=== PATIENT | female | born 1985 | race Caucasian/White ===

== ENCOUNTER 2017-02-10 17:01 | Emergency (ER) | payer BC ==
[2017-02-10] MEDS ORDERED: Sodium Chloride 0.9% 10 ML Syringe FLUSH PRN (17:13)
[2017-02-10] MEDS ORDERED: Sodium Chloride 0.9% 2.5 ML Syringe FLUSH PRN (17:13)
--- NOTE | 2017-02-10 17:16 | EDM.PDOC ---
ED HPI GENERAL MEDICAL PROBLEM - General Chief Complaint: Chest Pain Stated Complaint: PT HAS CHEST PAINS Time Seen by Provider: 02/10/17 17:11 - History of Present Illness INITIAL COMMENTS - FREE TEXT/NARRATIVE: HISTORY AND PHYSICAL: History of present illness: The patient is a 31-year-old female with a history of anxiety who follows with Dr. Call in her family practice clinic and has a history of a LAP-BAND and a C- section who presents with complaints of midsternal chest pain pressure that started about 10 minutes ago. She states it was a normal day today with no systemic complaints such as fever chills cough runny nose vomiting or diarrhea and has been eating normally. She said that she gradually felt the discomfort which is at the lower part of her sternum it does not radiate. She has had this in the past but never to this intensity. She stated that when it started it was a 3/10 and did not radiate. It was not associated with diaphoresis nausea or shortness of breath. The patient has a significant history of chronic alcohol use and injury HEENT the last 6 months but stopped approximately 10 days ago. She has had no tremors or withdrawal symptoms and is working with a counselor regarding this process. The patient denies any stomach pain per se and has no history of food intolerance. The patient currently states her pain is a 3.5/10 and she did not take any medications prior to coming here. The patient has her alcohol history but does not smoke or do drugs she does not know her cholesterol lipid panel and she has no significant family history. Patient also denies any leg pain or swelling and no recent long trips or sedentary behavior. She also denies any trauma Review of systems: As per history of present illness and below otherwise all systems reviewed and negative. Past medical history: As per history of present illness and as reviewed below otherwise noncontributory. Surgical history: As per history of present illness and as reviewed below otherwise noncontributory. Social history: No reported history of drug or alcohol abuse. Family history: As per history of present illness and as reviewed below otherwise noncontributory. Physical exam: General: Well-developed overweight female who is nontoxic and speaking clearly and easily. Her vital signs by me. HEENT: Atraumatic, normocephalic, pupils reactive, negative for conjunctival pallor or scleral icterus, mucous membranes moist, throat clear, neck supple, nontender, trachea midline. Lungs: Clear to auscultation, breath sounds equal bilaterally, chest with some reproducible tenderness at the lower sternal area without crepitus or defects Heart: S1S2, regular, negative for clicks, rubs, or JVD. Abdomen: Soft, nondistended, nontender. Negative for masses or hepatosplenomegaly. Negative for costovertebral tenderness. Pelvis: Stable nontender. Genitourinary: Deferred. Rectal: Deferred. Extremities: Atraumatic, negative for cords or calf pain. Neurovascular unremarkable. No pedal edema or leg asymmetry Neuro: Awake, alert, oriented. Cranial nerves II through XII unremarkable. Cerebellum unremarkable. Motor and sensory unremarkable throughout. Exam nonfocal. The patient exhibits no tremulousness Diagnostics: EKG chest x-ray CBC CMP amylase lipase d-dimer troponin Therapeutics: IV O2 monitor aspirin nitroglycerin 1750: When the nurse went in to give her the sublingual nitroglycerin patient states the pain is gone. We will continue with the aspirin and reevaluate. I discussed with the patient and significant other at bedside all testing results and recommendation for observation admission. It is unclear if this is truly cardiac or reproducible chest pain or GI related. Patient is aware of the risk benefits and states that she would prefer to go home and pursue outpatient workup with Dr. Call in the clinic. She is aware of my concerns and accepts those and is awake alert and oriented and states she will return for any problems. She prefer to go home and not be admitted. Impression: Atypical chest pain etiology unclear stable Definitive disposition and diagnosis as appropriate pending reevaluation and review of above. Chest Pain Score (Numeric/FACES): 3 - Related Data Allergies Allergy/AdvReac Type Severity Reaction Status Date / Time Penicillins Allergy Rash Verified 02/10/17 17:13 Home Meds: Home Meds Citalopram [Celexa] 20 mg PO DAILY 02/10/17 [History] ED ROS GENERAL - Review of Systems Review Of Systems: ROS reveals no pertinent complaints other than HPI. ED EXAM, GENERAL - Physical Exam Exam: See Below (See dictation) Course - Vital Signs Last Recorded V/S: Last Vital Signs Temp 37.1 C 02/10/17 17:13 Pulse 72 02/10/17 18:28 Resp 16 02/10/17 18:28 BP 115/69 02/10/17 18:36 Pulse Ox 98 02/10/17 18:28 - Orders/Labs/Meds Orders: Active Orders 24 hr Category Date Time Status Cardiac Monitoring [RC] . DIRECTED Care 02/10/17 17:12 Active EKG Documentation Completion [RC] STAT Care 02/10/17 17:12 Active Oxygen Therapy, ED [RC] ASDIRECTED Care 02/10/17 17:12 Active Pulse Oximetry [RC] ASDIRECTED Care 02/10/17 17:12 Active Chest 1V Frontal [CR] Stat Exams 02/10/17 17:12 Taken Sodium Chloride 0.9% [Saline Flush] Med 02/10/17 17:13 Active 10 ml FLUSH ASDIRECTED PRN Sodium Chloride 0.9% [Saline Flush] Med 02/10/17 17:13 Active 2.5 ml FLUSH ASDIRECTED PRN Saline Lock Insert [OM.PC] Stat Oth 02/10/17 17:12 Ordered Medication Orders Sodium Chloride (Saline Flush) 10 ml FLUSH ASDIRECTED PRN PRN Reason: Keep Vein Open Sodium Chloride (Saline Flush) 2.5 ml FLUSH ASDIRECTED PRN PRN Reason: Keep Vein Open Labs: Laboratory Tests 02/10/17 02/10/17 02/10/17 Range/Units 17:33 17:33 17:33 WBC 11.08 H (4.0-11.0) K/uL RBC 4.60 (4.30-5.90) M/uL Hgb 12.9 (12.0-16.0) g/dL Hct 40.6 (36.0-46.0) % MCV 88.3 (80.0-98.0) fL MCH 28.0 (27.0-32.0) pg MCHC 31.8 (31.0-37.0) g/dL RDW Std Deviation 42.7 (28.0-62.0) fl RDW Coeff of Jin 13 (11.0-15.0) % Plt Count 260 (150-400) K/uL MPV 10.50 (7.40-12.00) fL Neut % (Auto) 70.5 (48.0-80.0) % Lymph % (Auto) 23.1 (16.0-40.0) % Obion % (Auto) 4.7 (0.0-15.0) % Eos % (Auto) 1.2 (0.0-7.0) % Baso % (Auto) 0.5 (0.0-1.5) % Neut # (Auto) 7.8 H (1.4-5.7) K/uL Lymph # (Auto) 2.6 H (0.6-2.4) K/uL Obion # (Auto) 0.5 (0.0-0.8) K/uL Eos # (Auto) 0.1 (0.0-0.7) K/uL Baso # (Auto) 0.1 (0.0-0.1) K/uL Nucleated RBC % 0.0 /100WBC Nucleated RBCs # 0 K/uL D-Dimer, Quantitative 0.22 (0.0-0.52) mg/LFEU Sodium 137 (136-146) mmol/L Potassium 3.8 (3.5-5.1) mmol/L Chloride 104 (98-110) mmol/L Carbon Dioxide 23 (21-31) mmol/L BUN 10 (6.0-23.0) mg/dL Creatinine 0.8 (0.6-1.5) mg/dL Est Cr Clr Drug Dosing TNP Estimated GFR (MDRD) > 60.0 ml/min Glucose 102 (60-110) mg/dL Calcium 9.1 (8.8-10.8) mg/dL Total Bilirubin 0.3 (0.1-1.5) mg/dL AST 17 (5-40) IU/L ALT 12 (8-54) IU/L Alkaline Phosphatase 71 (40-150) Troponin I (0.0-0.29) NG/ML Total Protein 7.6 (6.0-8.0) g/dL Albumin 4.2 (3.5-5.0) g/dL Globulin 3.4 (2.0-3.5) g/dL Albumin/Globulin Ratio 1.2 L (1.3-2.8) Amylase 44 (10-90) U/L Lipase 31 (7-80) U/L 02/10/17 Range/Units 17:33 WBC (4.0-11.0) K/uL RBC (4.30-5.90) M/uL Hgb (12.0-16.0) g/dL Hct (36.0-46.0) % MCV (80.0-98.0) fL MCH (27.0-32.0) pg MCHC (31.0-37.0) g/dL RDW Std Deviation (28.0-62.0) fl RDW Coeff of Jin (11.0-15.0) % Plt Count (150-400) K/uL MPV (7.40-12.00) fL Neut % (Auto) (48.0-80.0) % Lymph % (Auto) (16.0-40.0) % Obion % (Auto) (0.0-15.0) % Eos % (Auto) (0.0-7.0) % Baso % (Auto) (0.0-1.5) % Neut # (Auto) (1.4-5.7) K/uL Lymph # (Auto) (0.6-2.4) K/uL Obion # (Auto) (0.0-0.8) K/uL Eos # (Auto) (0.0-0.7) K/uL Baso # (Auto) (0.0-0.1) K/uL Nucleated RBC % /100WBC Nucleated RBCs # K/uL D-Dimer, Quantitative (0.0-0.52) mg/LFEU Sodium (136-146) mmol/L Potassium (3.5-5.1) mmol/L Chloride (98-110) mmol/L Carbon Dioxide (21-31) mmol/L BUN (6.0-23.0) mg/dL Creatinine (0.6-1.5) mg/dL Est Cr Clr Drug Dosing Estimated GFR (MDRD) ml/min Glucose (60-110) mg/dL Calcium (8.8-10.8) mg/dL Total Bilirubin (0.1-1.5) mg/dL AST (5-40) IU/L ALT (8-54) IU/L Alkaline Phosphatase (40-150) Troponin I < 0.10 (0.0-0.29) NG/ML Total Protein (6.0-8.0) g/dL Albumin (3.5-5.0) g/dL Globulin (2.0-3.5) g/dL Albumin/Globulin Ratio (1.3-2.8) Amylase (10-90) U/L Lipase (7-80) U/L Meds: Medications Generic Name Dose Route Start Last Admin Trade Name Freq PRN Reason Stop Dose Admin Sodium Chloride 10 ml 02/10/17 17:13 Saline Flush FLUSH ASDIRECTED PRN Keep Vein Open Sodium Chloride 2.5 ml 02/10/17 17:13 Saline Flush FLUSH ASDIRECTED PRN Keep Vein Open Discontinued Medications Generic Name Dose Route Start Last Admin Trade Name Freq PRN Reason Stop Dose Admin Aspirin 324 mg 02/10/17 17:13 02/10/17 17:33 Aspirin PO 02/10/17 17:14 324 mg ONETIME ONE Administration Nitroglycerin 0.4 mg 02/10/17 17:17 02/10/17 18:36 Nitrostat SL 02/10/17 17:18 Not Given ONETIME ONE Departure - Departure Time of Disposition: 18:43 Disposition: Home, Self-Care 01 Condition: good Clinical Impression: Atypical chest pain Forms: ED Department Discharge Additional Instructions: The following information is given to patients seen in the emergency department who are being discharged to home. This information is to outline your options for follow-up care. We provide all patients seen in our emergency department with a follow-up referral. The need for follow-up, as well as the timing and circumstances, are variable depending upon the specifics of your emergency department visit. If you don't have a primary care physician on staff, we will provide you with a referral. We always advise you to contact your personal physician following an emergency department visit to inform them of the circumstance of the visit and for follow-up with them and/or the need for any referrals to a consulting specialist. The emergency department will also refer you to a specialist when appropriate. This referral assures that you have the opportunity for followup care with a specialist. All of these measure are taken in an effort to provide you with optimal care, which includes your followup. Under all circumstances we always encourage you to contact your private physician who remains a resource for coordinating your care. When calling for followup care, please make the office aware that this follow-up is from your recent emergency room visit. If for any reason you are refused follow-up, please contact the [facility] emergency department at and ask to speak to the emergency department charge nurse. ARLETTE [facility] Primary care- Internal Medicine and Family [address] [address] Please take one enteric-coated aspirin 325 mg every day until you're followed up in the clinic. Please call the clinic tomorrow for a appointment in the next one to today's and return to ER as needed as discussed. - My Orders Last 24 Hours: My Active Orders 02/10/17 17:12 Cardiac Monitoring [RC] . DIRECTED EKG Documentation Completion [RC] STAT Oxygen Therapy, ED [RC] ASDIRECTED Pulse Oximetry [RC] ASDIRECTED Chest 1V Frontal [CR] Stat Saline Lock Insert [OM.PC] Stat 02/10/17 17:13 Sodium Chloride 0.9% [Saline Flush] 10 ml FLUSH ASDIRECTED PRN Sodium Chloride 0.9% [Saline Flush] 2.5 ml FLUSH ASDIRECTED PRN - Assessment/Plan Last 24 Hours: My Active Orders 02/10/17 17:12 Cardiac Monitoring [RC] . DIRECTED EKG Documentation Completion [RC] STAT Oxygen Therapy, ED [RC] ASDIRECTED Pulse Oximetry [RC] ASDIRECTED Chest 1V Frontal [CR] Stat Saline Lock Insert [OM.PC] Stat 02/10/17 17:13 Sodium Chloride 0.9% [Saline Flush] 10 ml FLUSH ASDIRECTED PRN Sodium Chloride 0.9% [Saline Flush] 2.5 ml FLUSH ASDIRECTED PRN
[2017-02-10] MEDS: Aspirin 81 MG Tab.Chew PO ONE (17:33)
[2017-02-10 18:11] LABS: CHLORIDE,CL 104 mmol/L (98-110); SODIUM,NA 137 mmol/L (136-146)
[2017-02-10] MEDS: Nitroglycerin 0.4 MG Tab.SL SL ONE (18:36)
--- NOTE | 2017-02-11 13:29 | CR ---
EXAM DATE: 02/10/17 PATIENT'S AGE: 31 Patient: MARCELINO WYMAN Facility: [place], [place] Site . Site : 1985 Study: XRay Chest [id number]/[id number] 5:40:27 PM Ordering Physician: Doctor Nguyen Final Report: Indication: Chest pain Technique: Chest 1 view. Comparison: None Findings: Cardiovascular and mediastinum: Heart size and vasculature are normal in caliber and appearance. Mediastinum is within normal limits. Lungs and pleural space: Lungs are clear. No sign of infiltrate or mass. No sign of pleural effusion. No pneumothorax. Bones and soft tissues: No significant findings. Impression: No sign of acute disease. Dictated by Kellen Esteves MD @ Feb 10 2017 6:02PM (Electronic Signature) Report Signed by Proxy and Original Signed Document filed in the Medical Record. CHELSEA
== END 2017-02-10 19:03 | disposition home or self-care (01) ==
LOC: MW.ED 17:01
DX: R07.89 Other chest pain (principal); Z88.0 Allergy status to penicillin; Z79.899 Other long term (current) drug therapy; Z98.890 Other specified postprocedural states
CPT/HCPCS: 36415; 71010; 80053; 82150; 83690; 84484; 85025; 85379; 93005; 99285; A9270; 99284

== ENCOUNTER 2019-09-25 02:54 | Observation (INO) | payer BC ==
[2019-09-25] MEDS ORDERED: Sodium Chloride 0.9% 2.5 ML Syringe FLUSH PRN ×2 (02:57→06:19)
[2019-09-25] MEDS ORDERED: Sodium Chloride 0.9% 10 ML Syringe FLUSH PRN ×2 (02:57→06:19)
[2019-09-25] MEDS ORDERED: Ondansetron 4 MG/2 ML SDV IVPUSH ONE (03:17)
[2019-09-25] MEDS ORDERED: LORazepam 2 MG/ML SDV IVPUSH ONE (03:17)
[2019-09-25] MEDS ORDERED: Sodium Chloride 0.9% 1,000 ML IV ONE (03:17)
[2019-09-25] MEDS ORDERED: Pantoprazole 40 MG Vial IVPUSH ONE (03:17)
--- NOTE | 2019-09-25 03:24 | EDM.PDOC ---
ED HPI GENERAL MEDICAL PROBLEM - General Chief Complaint: Chest Pain Stated Complaint: CHEST PAIN Time Seen by Provider: 09/25/19 02:55 - History of Present Illness INITIAL COMMENTS - FREE TEXT/NARRATIVE: HISTORY AND PHYSICAL: History of present illness: The patient is a 34-year-old female with a history of anxiety gastric sleeve procedure as well as a history of chronic episodic alcohol use for which she just started naltrexone yesterday for the first dose and presents with complaints of midsternal chest pain pressure with some burning that started about 10 PM, 5 hours ago. The patient says that over the last 3-4 days she has increased her volume of alcohol consumption and although she drinks on a daily basis over the last 3-4 days it has been higher in volume and has accelerated significantly. The patient said that she had the prescription for the naltrexone in the past but did not start until yesterday. She saw her provider in the clinic of Dr. Call one month ago to have her liver function test checked so that she could start this medication and try to help treat herself. The patient denies any vomiting or diarrhea and has not had black or bloody stools but says she does have nausea. She says that the only time she will vomit is when she drinks too much alcohol and due to the limited capacity after her gastric sleeve she gets bloated. She has not had any shortness of breath or upper respiratory symptoms no fevers or chills and she describes the discomfort as midsternal nonradiating and it is a pressure burning like sensation. She says that she feels very shaky and very anxious and is concerned that she is going into withdrawal. She said the only reason why she came here this evening is because she is supposed to leave this morning on a business trip for several days and she was very scared to go on this trip and be in a hotel room by herself and she thinks she is going to go through alcohol withdrawal. She has not had any recent trauma and has no urinary complaints. She says that she does feel very anxious and shaky but has no generalized weakness or focal weakness. She currently in the ED has no complaints of any pain other than the chest discomfort and she did not take any medications at home for that. The patient was seen here by me approximately 2 years ago for atypical chest pain and similar complaints of location and character of the pain and had negative workup and says that she did not get any further testing as an outpatient such as a stress test or upper endoscopy. The patient denies any drug use and does not smoke cigarettes. The patient is currently not an any oral contraception and gets her menstrual cycles every month. Patient has no significant family history for cardiac disease It is noted that in the computer in May 2018 she had normal triglycerides and cholesterol levels on blood work done Review of systems: As per history of present illness and below otherwise all systems reviewed and negative. Past medical history: As per history of present illness and as reviewed below otherwise noncontributory. Surgical history: As per history of present illness and as reviewed below otherwise noncontributory. Social history: No reported history of drug or alcohol abuse. Family history: As per history of present illness and as reviewed below otherwise noncontributory. Physical exam: General: Well-developed well-nourished overweight female who is nontoxic and vital signs are noted by me. Throughout the course of my questioning and interview the patient is tearful and expresses remorse about her behaviors and her alcohol use and abuse. HEENT: Atraumatic, normocephalic, pupils reactive, negative for conjunctival pallor or scleral icterus, mucous membranes moist, throat clear, neck supple, nontender, trachea midline. Lungs: Clear to auscultation, breath sounds equal bilaterally, chest nontender. Heart: S1S2, regular, negative for clicks, rubs, or JVD. Abdomen: Soft, nondistended, nontender. Negative for masses or hepatosplenomegaly. Negative for costovertebral tenderness. Pelvis: Stable nontender. Genitourinary: Deferred. Rectal: Deferred. Extremities: Atraumatic, negative for cords or calf pain. Neurovascular unremarkable. No pedal edema or leg asymmetry Neuro: Awake, alert, oriented. Cranial nerves II through XII unremarkable. Cerebellum unremarkable. Motor and sensory unremarkable throughout. Exam nonfocal. The patient has slight tremulousness and intermittent tachycardia on my evaluation. Skin: There is no diaphoresis no overt rashes or lesions and turgor is normal Diagnostics: EKG CBC CMP amylase lipase troponin INR alcohol level UA UCG UDS chest x-ray magnesium level Therapeutics: IV O2 monitor IV fluids Zofran and Protonix, banana bag and Ativan Patient's blood pressure has improved with the last blood pressure I've seen is 152/94 at 3:45 AM and her heart rate is in the 70s to 80s. The patient is no longer as shaky as she was on arrival and says that she no longer has the chest discomfort or the burning sensation and it is significantly improved and barely there. She no longer feels nauseated. I have discussed with her the variety of options that we have for treatment plan and she feels very comfortable with discharge home and she is scared that she will go through a larger episode of withdrawal, which she has had in the past when she has tried to stop drinking. She is aware that we can only observe her here and is up to the discretion of the hospitalist for that and that after that observation she would have to get more definitive care. She is open to inpatient care and would be willing to go to [facility] for an intake evaluation and/or be connected to any other treatment plans that we might be able to suggest an offer. She says the reason why she came into the ED tonight is because she is very concerned about the way she was feeling and the possible progression of her withdrawal symptoms and she has had had bad experiences in the past. I will discuss this case with Dr. Grimes and look for observation admission with the goal of connecting her for the next level of care with her alcohol addiction. Nursing will do a CIWA score 430: Case was discussed with Dr. Grimes who accepts the patient for observation admission and will work with her and advised her on next steps in her care plan. He agrees that the patient does not need to be in ICU or on telemetry at this time. Impression: alcohol withdrawal symptoms, mild Definitive disposition and diagnosis as appropriate pending reevaluation and review of above. chest Pain Score (Numeric/FACES): 4 - Related Data Allergies Allergy/AdvReac Type Severity Reaction Status Date / Time Penicillins Allergy Rash Verified 09/25/19 03:01 Home Meds: Home Meds Naltrexone 50 mg PO DAILY 09/25/19 [History] Past Medical History HEENT History: Reports: Impaired Vision, Other (See Below) Other HEENT History: wears glasses Gastrointestinal History: Reports: None Genitourinary History: Reports: None [employer] History: Reports: Psychiatric History: Reports: Anxiety, Other (See Below) Other Psychiatric History: post depression - Infectious Disease History Infectious Disease History: Reports: Chicken Pox - Past Surgical History HEENT Surgical History: Reports: None GI Surgical History: Reports: Bariatric Procedure Female Surgical History: Reports: Section Social & Family History - Family History Family Medical History: Noncontributory - Tobacco Use Smoking Status *Q: Never Smoker Second Hand Smoke Exposure: No - Caffeine Use Caffeine Use: Reports: Coffee Caffeine Use Comment: 4 drinks daily - Alcohol Use Days Per Week of Alcohol Use: 7 Number of Drinks Per Day: 2 Total Drinks Per Week: 14 - Recreational Drug Use Recreational Drug Use: No ED ROS GENERAL - Review of Systems Review Of Systems: ROS reveals no pertinent complaints other than HPI. ED EXAM, GENERAL - Physical Exam Exam: See Below (See dictation) Course - Vital Signs Last Recorded V/S: Last Vital Signs Temp 36.2 C 09/25/19 02:58 Pulse 89 09/25/19 02:58 Resp 17 09/25/19 02:58 BP 183/101 H 09/25/19 02:58 Pulse Ox 99 09/25/19 02:58 - Orders/Labs/Meds Orders: Active Orders 24 hr Category Date Time Status Patient Status [ADT] Stat ADT 09/25/19 04:33 Ordered Blood Glucose Check, Bedside [RC] ONETIME Care 09/25/19 03:16 Active Cardiac Monitoring [RC] . DIRECTED Care 09/25/19 02:57 Active EKG Documentation Completion [RC] STAT Care 09/25/19 02:57 Active Oxygen Therapy, ED [RC] ASDIRECTED Care 09/25/19 02:57 Active Pulse Oximetry [RC] ASDIRECTED Care 09/25/19 02:57 Active CULTURE URINE [RM] Stat Lab 09/25/19 03:45 Received MVI, Adult with Vitamin K [Infuvite Adult] 10 ml Med 09/25/19 03:25 Active Thiamine [Vitamin B-1] 100 mg Folic Acid 1 mg Sodium Chloride 0.9% [Normal Saline] 1,000 ml IV ONETIME Sodium Chloride 0.9% [Saline Flush] Med 09/25/19 02:57 Active 10 ml FLUSH ASDIRECTED PRN Sodium Chloride 0.9% [Saline Flush] Med 09/25/19 02:57 Active 2.5 ml FLUSH ASDIRECTED PRN Saline Lock Insert [OM.PC] Stat Oth 09/25/19 02:57 Ordered Medication Orders Multivitamins/Minerals 10 ml/Thiamine HCl 100 mg/ Folic Acid 1 mg/ Sodium Chloride 1,011.2 mls @ 150 mls/hr IV ONETIME ONE Stop: 09/25/19 10:09 Last Admin: 09/25/19 04:29 Dose: 150 mls/hr Sodium Chloride (Saline Flush) 10 ml FLUSH ASDIRECTED PRN PRN Reason: Keep Vein Open Sodium Chloride (Saline Flush) 2.5 ml FLUSH ASDIRECTED PRN PRN Reason: Keep Vein Open Labs: Laboratory Tests 09/25/19 09/25/19 09/25/19 Range/Units 03:04 03:04 03:04 WBC 11.48 H (4.0-11.0) K/uL RBC 4.50 (4.30-5.90) M/uL Hgb 12.6 (12.0-16.0) g/dL Hct 39.1 (36.0-46.0) % MCV 86.9 (80.0-98.0) fL MCH 28.0 (27.0-32.0) pg MCHC 32.2 (31.0-37.0) g/dL RDW Std Deviation 44.7 (28.0-62.0) fl RDW Coeff of Jin 14 (11.0-15.0) % Plt Count 303 (150-400) K/uL MPV 10.10 (7.40-12.00) fL Neut % (Auto) 71.7 (48.0-80.0) % Lymph % (Auto) 20.1 (16.0-40.0) % [place] % (Auto) 7.4 (0.0-15.0) % Eos % (Auto) 0.5 (0.0-7.0) % Baso % (Auto) 0.3 (0.0-1.5) % Neut # (Auto) 8.2 H (1.4-5.7) K/uL Lymph # (Auto) 2.3 (0.6-2.4) K/uL [place] # (Auto) 0.9 H (0.0-0.8) K/uL Eos # (Auto) 0.1 (0.0-0.7) K/uL Baso # (Auto) 0.0 (0.0-0.1) K/uL Nucleated RBC % 0.0 /100WBC Nucleated RBCs # 0 K/uL INR 1.19 Sodium 141 (136-145) mmol/L Potassium 3.5 (3.5-5.1) mmol/L Chloride 103 (98-107) mmol/L Carbon Dioxide 24.1 (21.0-32.0) mmol/L BUN 7 (7.0-18.0) mg/dL Creatinine 0.7 (0.6-1.0) mg/dL Est Cr Clr Drug Dosing 104.01 mL/min Estimated GFR (MDRD) > 60.0 ml/min Glucose 89 (74-106) mg/dL POC Glucose (60-110) mg/dL Calcium 8.3 L (8.5-10.1) mg/dL Magnesium (1.8-2.4) mg/dL Total Bilirubin 0.8 (0.2-1.0) mg/dL AST 17 (15-37) IU/L ALT 17 (14-63) IU/L Alkaline Phosphatase 95 (46-116) U/L Troponin I < 0.050 (0.000-0.056) ng/mL Total Protein 7.6 (6.4-8.2) g/dL Albumin 3.6 (3.4-5.0) g/dL Globulin 4.0 (2.6-4.0) g/dL Albumin/Globulin Ratio 0.9 (0.9-1.6) Amylase 33 (25-115) U/L Lipase 83 (73-393) U/L Urine Color Urine Appearance Urine pH (5.0-8.0) Ur Specific [place] (1.001-1.035) Urine Protein (NEGATIVE) mg/dL Urine Glucose (UA) (NEGATIVE) mg/dL Urine Ketones (NEGATIVE) mg/dL Urine Occult Blood (NEGATIVE) Urine Nitrite (NEGATIVE) Urine Bilirubin (NEGATIVE) Urine Urobilinogen (<2.0) EU/dL Ur Leukocyte Esterase (NEGATIVE) Urine RBC (0-2/HPF) Urine WBC (0-5/HPF) Ur Epithelial Cells (NONE-FEW) Urine Bacteria (NEGATIVE) Urine HCG, Qual (NEGATIVE) Urine Opiates Screen (NEGATIVE) Ur Oxycodone Screen (NEGATIVE) Urine Methadone Screen (NEGATIVE) Ur Barbiturates Screen (NEGATIVE) Ur Phencyclidine Scrn (NEGATIVE) Ur Amphetamine Screen (NEGATIVE) U Methamphetamines Scrn (NEGATIVE) U Benzodiazepines Scrn (NEGATIVE) U Cocaine Metab Screen (NEGATIVE) U Marijuana (THC) Screen (NEGATIVE) Ethyl Alcohol < 3.0 mg/dL 09/25/19 09/25/19 09/25/19 Range/Units 03:04 03:44 03:45 WBC (4.0-11.0) K/uL RBC (4.30-5.90) M/uL Hgb (12.0-16.0) g/dL Hct (36.0-46.0) % MCV (80.0-98.0) fL MCH (27.0-32.0) pg MCHC (31.0-37.0) g/dL RDW Std Deviation (28.0-62.0) fl RDW Coeff of Jin (11.0-15.0) % Plt Count (150-400) K/uL MPV (7.40-12.00) fL Neut % (Auto) (48.0-80.0) % Lymph % (Auto) (16.0-40.0) % [place] % (Auto) (0.0-15.0) % Eos % (Auto) (0.0-7.0) % Baso % (Auto) (0.0-1.5) % Neut # (Auto) (1.4-5.7) K/uL Lymph # (Auto) (0.6-2.4) K/uL [place] # (Auto) (0.0-0.8) K/uL Eos # (Auto) (0.0-0.7) K/uL Baso # (Auto) (0.0-0.1) K/uL Nucleated RBC % /100WBC Nucleated RBCs # K/uL INR Sodium (136-145) mmol/L Potassium (3.5-5.1) mmol/L Chloride (98-107) mmol/L Carbon Dioxide (21.0-32.0) mmol/L BUN (7.0-18.0) mg/dL Creatinine (0.6-1.0) mg/dL Est Cr Clr Drug Dosing mL/min Estimated GFR (MDRD) ml/min Glucose (74-106) mg/dL POC Glucose 74 (60-110) mg/dL Calcium (8.5-10.1) mg/dL Magnesium 1.8 (1.8-2.4) mg/dL Total Bilirubin (0.2-1.0) mg/dL AST (15-37) IU/L ALT (14-63) IU/L Alkaline Phosphatase (46-116) U/L Troponin I (0.000-0.056) ng/mL Total Protein (6.4-8.2) g/dL Albumin (3.4-5.0) g/dL Globulin (2.6-4.0) g/dL Albumin/Globulin Ratio (0.9-1.6) Amylase (25-115) U/L Lipase (73-393) U/L Urine Color YELLOW Urine Appearance SLT CLOUDY Urine pH 7.0 (5.0-8.0) Ur Specific [place] 1.010 (1.001-1.035) Urine Protein NEGATIVE (NEGATIVE) mg/dL Urine Glucose (UA) NEGATIVE (NEGATIVE) mg/dL Urine Ketones NEGATIVE (NEGATIVE) mg/dL Urine Occult Blood NEGATIVE (NEGATIVE) Urine Nitrite NEGATIVE (NEGATIVE) Urine Bilirubin NEGATIVE (NEGATIVE) Urine Urobilinogen 0.2 (<2.0) EU/dL Ur Leukocyte Esterase TRACE H (NEGATIVE) Urine RBC 0-1 (0-2/HPF) Urine WBC 0-2 (0-5/HPF) Ur Epithelial Cells MODERATE (NONE-FEW) Urine Bacteria FEW (NEGATIVE) Urine HCG, Qual (NEGATIVE) Urine Opiates Screen (NEGATIVE) Ur Oxycodone Screen (NEGATIVE) Urine Methadone Screen (NEGATIVE) Ur Barbiturates Screen (NEGATIVE) Ur Phencyclidine Scrn (NEGATIVE) Ur Amphetamine Screen (NEGATIVE) U Methamphetamines Scrn (NEGATIVE) U Benzodiazepines Scrn (NEGATIVE) U Cocaine Metab Screen (NEGATIVE) U Marijuana (THC) Screen (NEGATIVE) Ethyl Alcohol mg/dL 09/25/19 09/25/19 Range/Units 03:45 03:45 WBC (4.0-11.0) K/uL RBC (4.30-5.90) M/uL Hgb (12.0-16.0) g/dL Hct (36.0-46.0) % MCV (80.0-98.0) fL MCH (27.0-32.0) pg MCHC (31.0-37.0) g/dL RDW Std Deviation (28.0-62.0) fl RDW Coeff of Jin (11.0-15.0) % Plt Count (150-400) K/uL MPV (7.40-12.00) fL Neut % (Auto) (48.0-80.0) % Lymph % (Auto) (16.0-40.0) % [place] % (Auto) (0.0-15.0) % Eos % (Auto) (0.0-7.0) % Baso % (Auto) (0.0-1.5) % Neut # (Auto) (1.4-5.7) K/uL Lymph # (Auto) (0.6-2.4) K/uL [place] # (Auto) (0.0-0.8) K/uL Eos # (Auto) (0.0-0.7) K/uL Baso # (Auto) (0.0-0.1) K/uL Nucleated RBC % /100WBC Nucleated RBCs # K/uL INR Sodium (136-145) mmol/L Potassium (3.5-5.1) mmol/L Chloride (98-107) mmol/L Carbon Dioxide (21.0-32.0) mmol/L BUN (7.0-18.0) mg/dL Creatinine (0.6-1.0) mg/dL Est Cr Clr Drug Dosing mL/min Estimated GFR (MDRD) ml/min Glucose (74-106) mg/dL POC Glucose (60-110) mg/dL Calcium (8.5-10.1) mg/dL Magnesium (1.8-2.4) mg/dL Total Bilirubin (0.2-1.0) mg/dL AST (15-37) IU/L ALT (14-63) IU/L Alkaline Phosphatase (46-116) U/L Troponin I (0.000-0.056) ng/mL Total Protein (6.4-8.2) g/dL Albumin (3.4-5.0) g/dL Globulin (2.6-4.0) g/dL Albumin/Globulin Ratio (0.9-1.6) Amylase (25-115) U/L Lipase (73-393) U/L Urine Color Urine Appearance Urine pH (5.0-8.0) Ur Specific [place] (1.001-1.035) Urine Protein (NEGATIVE) mg/dL Urine Glucose (UA) (NEGATIVE) mg/dL Urine Ketones (NEGATIVE) mg/dL Urine Occult Blood (NEGATIVE) Urine Nitrite (NEGATIVE) Urine Bilirubin (NEGATIVE) Urine Urobilinogen (<2.0) EU/dL Ur Leukocyte Esterase (NEGATIVE) Urine RBC (0-2/HPF) Urine WBC (0-5/HPF) Ur Epithelial Cells (NONE-FEW) Urine Bacteria (NEGATIVE) Urine HCG, Qual NEGATIVE (NEGATIVE) Urine Opiates Screen NEGATIVE (NEGATIVE) Ur Oxycodone Screen NEGATIVE (NEGATIVE) Urine Methadone Screen NEGATIVE (NEGATIVE) Ur Barbiturates Screen NEGATIVE (NEGATIVE) Ur Phencyclidine Scrn NEGATIVE (NEGATIVE) Ur Amphetamine Screen NEGATIVE (NEGATIVE) U Methamphetamines Scrn NEGATIVE (NEGATIVE) U Benzodiazepines Scrn NEGATIVE (NEGATIVE) U Cocaine Metab Screen NEGATIVE (NEGATIVE) U Marijuana (THC) Screen NEGATIVE (NEGATIVE) Ethyl Alcohol mg/dL Meds: Medications Generic Name Dose Route Start Last Admin Trade Name Freq PRN Reason Stop Dose Admin Multivitamins/Minerals 10 ml/ 1,011.2 mls @ 150 mls/hr 09/25/19 03:25 04:29 Thiamine HCl 100 mg/ Folic IV 09/25/19 10:09 150 mls/hr Acid 1 mg/ Sodium Chloride ONETIME ONE Administration Sodium Chloride 10 ml 09/25/19 02:57 Saline Flush FLUSH ASDIRECTED PRN Keep Vein Open Sodium Chloride 2.5 ml 09/25/19 02:57 Saline Flush FLUSH ASDIRECTED PRN Keep Vein Open Discontinued Medications Generic Name Dose Route Start Last Admin Trade Name Freq PRN Reason Stop Dose Admin Sodium Chloride 1,000 mls @ 999 mls/hr 09/25/19 03:17 09/25/19 03:26 Normal Saline IV 09/25/19 04:17 999 mls/hr STAT ONE Administration Lorazepam 1 mg 09/25/19 03:17 09/25/19 03:27 Ativan IVPUSH 09/25/19 03:18 1 mg ONETIME ONE Administration Ondansetron HCl 4 mg 09/25/19 03:17 09/25/19 03:27 Zofran IVPUSH 09/25/19 03:18 4 mg ONETIME ONE Administration Pantoprazole Sodium 80 mg 09/25/19 03:17 09/25/19 03:27 Protonix Iv IVPUSH 09/25/19 03:18 80 mg .BOLUS ONE Administration Departure - Departure Time of Disposition: 04:34 Disposition: Refer to Observation Condition: Good Clinical Impression: Alcohol withdrawal syndrome without complication - Discharge Information Referrals: Sharif Call MD [Primary Care Provider] - Forms: ED Department Discharge - My Orders Last 24 Hours: My Active Orders 09/25/19 02:57 Cardiac Monitoring [RC] . DIRECTED EKG Documentation Completion [RC] STAT Oxygen Therapy, ED [RC] ASDIRECTED Pulse Oximetry [RC] ASDIRECTED Sodium Chloride 0.9% [Saline Flush] 10 ml FLUSH ASDIRECTED PRN Sodium Chloride 0.9% [Saline Flush] 2.5 ml FLUSH ASDIRECTED PRN Saline Lock Insert [OM.PC] Stat 09/25/19 03:16 Blood Glucose Check, Bedside [RC] ONETIME 09/25/19 03:25 MVI, Adult with Vitamin K [Infuvite Adult] 10 ml Thiamine [Vitamin B-1] 100 mg Folic Acid 1 mg Sodium Chloride 0.9% [Normal Saline] 1,000 ml IV ONETIME 09/25/19 03:45 CULTURE URINE [RM] Stat 09/25/19 04:33 Patient Status [ADT] Stat - Assessment/Plan Last 24 Hours: My Active Orders 09/25/19 02:57 Cardiac Monitoring [RC] . DIRECTED EKG Documentation Completion [RC] STAT Oxygen Therapy, ED [RC] ASDIRECTED Pulse Oximetry [RC] ASDIRECTED Sodium Chloride 0.9% [Saline Flush] 10 ml FLUSH ASDIRECTED PRN Sodium Chloride 0.9% [Saline Flush] 2.5 ml FLUSH ASDIRECTED PRN Saline Lock Insert [OM.PC] Stat 09/25/19 03:16 Blood Glucose Check, Bedside [RC] ONETIME 09/25/19 03:25 MVI, Adult with Vitamin K [Infuvite Adult] 10 ml Thiamine [Vitamin B-1] 100 mg Folic Acid 1 mg Sodium Chloride 0.9% [Normal Saline] 1,000 ml IV ONETIME 09/25/19 03:45 CULTURE URINE [RM] Stat 09/25/19 04:33 Patient Status [ADT] Stat
[2019-09-25] MEDS ORDERED: MVI, Adult with Vitamin K 10 ML, Thiamine 100 MG, Folic Acid 1 MG in Sodium Chloride 0.... IV ONE ×4 (03:25)
[2019-09-25 03:39] LABS: BLOOD UREA NITROGEN,BUN 7 mg/dL (7.0-18.0); CARBON DIOXIDE,CO2 24.1 mmol/L (21.0-32.0); CHLORIDE,CL 103 mmol/L (98-107); GLUCOSE RANDOM 89 mg/dL (74-106); POTASSIUM,K 3.5 mmol/L (3.5-5.1); SODIUM,NA 141 mmol/L (136-145)
[2019-09-25 03:40] LABS: LIPASE 83 U/L (73-393)
[2019-09-25] MEDS ORDERED: Folic Acid 50 MG/10 ML MDV ONE (04:05)
[2019-09-25] MEDS ORDERED: Thiamine 200 MG/2 ML MDV ONE (04:05)
[2019-09-25] MEDS ORDERED: MVI, Adult with Vitamin K 10 ML SDV ONE (04:05)
--- NOTE | 2019-09-25 04:10 | CR ---
INDICATION: prior sent. 1 image. chest pain TECHNIQUE: Chest 1 view. COMPARISON: 02/10/17 FINDINGS: Cardiovascular and mediastinum: Heart size and vasculature are normal in caliber and appearance. Mediastinum is within normal limits. Lungs and pleural space: Lungs are clear. No sign of infiltrate or mass. No sign of pleural effusion. No pneumothorax. Bones and soft tissues: No significant findings. IMPRESSION: Unremarkable chest. Dictated by: Star Ayala MD @ 09/25/2019 04:07:52 (Electronically Signed)
[2019-09-25] MEDS ORDERED: Ondansetron 4 MG Tab.DIS PO PRN (07:09)
[2019-09-25] MEDS ORDERED: Acetaminophen 325 MG Tab PO PRN (07:09)
[2019-09-25] MEDS ORDERED: LORazepam 2 MG/ML SDV IVPUSH PRN (07:14)
--- NOTE | 2019-09-25 07:15 | PCM.HP.2 ---
H&P History of Present Illness - General Date of Service: 09/25/19 Admit Problem/Dx: Admission Diagnosis/Problem Admission Diagnosis/Problem Alcohol withdrawal syndrome without complication - History of Present Illness Initial Comments - Free Text/Narative: 34 y/o female with history of gastric sleeve surgery, alcohol abuse who presented to the ER complaining of epigastric pain. Patient states that she started drinking more alcohol in the past few days. Drinking 2 small vodka bottles per day. Denies any alcohol withdrawal seizures. denies any hemoptysis, emesis, diarrhea, blood in stool. She is endorsing some epigastric pain which has resolved now. States she started taking naltrexone yesterday since she wants to quit drinking alcohol. Has been feeling nauseous, tremulous. States that ativan administered in the ER helped her symptoms. Denies any chest pain, dyspnea, abdominal pain, dysuria, diarrhea, blood in stool. Feels much better this morning. 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: Psychiatric History: Reports: Anxiety, Other (See Below) Other Psychiatric History: post depression - Infectious Disease History Infectious Disease History: Reports: Chicken Pox - Past Surgical History HEENT Surgical History: Reports: None GI Surgical History: Reports: Bariatric Procedure Female Surgical History: Reports: Section Social & Family History - Family History Family Medical History: Noncontributory - Tobacco Use Smoking Status *Q: Never Smoker Second Hand Smoke Exposure: No - Caffeine Use Caffeine Use: Reports: Coffee, Soda Caffeine Use Comment: 4 drinks daily - Alcohol Use Days Per Week of Alcohol Use: 7 Number of Drinks Per Day: 1 Total Drinks Per Week: 7 Date of Last Drink: 09/23/19 - Recreational Drug Use Recreational Drug Use: No H&P Review of Systems - Review of Systems: Review Of Systems: ROS reveals no pertinent complaints other than HPI. Exam - Exam Exam: See Below - Vital Signs Vital Signs: Last Vital Signs Temp 36.8 C 09/25/19 05:49 Pulse 76 09/25/19 05:49 Resp 16 09/25/19 05:49 BP 153/98 H 09/25/19 05:49 Pulse Ox 97 09/25/19 05:49 Weight: 124.647 kg - Exam General: Alert, Oriented, Cooperative HEENT: Mucosa Moist & [place] Lungs: Clear to Auscultation, Normal Respiratory Effort. No: Crackles, Wheezing Cardiovascular: Regular Rate, Regular Rhythm GI/Abdominal Exam: Normal Bowel Sounds, Soft, Non-Tender Extremities: Normal Inspection, Non-Tender, No Pedal Edema Skin: Warm, Dry - Patient Data Lab Results Last 24 hrs: Laboratory Results - last 24 hr 09/25/19 09/25/19 09/25/19 Range/Units 03:04 03:04 03:04 WBC 11.48 H (4.0-11.0) K/uL RBC 4.50 (4.30-5.90) M/uL Hgb 12.6 (12.0-16.0) g/dL Hct 39.1 (36.0-46.0) % MCV 86.9 (80.0-98.0) fL MCH 28.0 (27.0-32.0) pg MCHC 32.2 (31.0-37.0) g/dL RDW Std Deviation 44.7 (28.0-62.0) fl RDW Coeff of Jni 14 (11.0-15.0) % Plt Count 303 (150-400) K/uL MPV 10.10 (7.40-12.00) fL Neut % (Auto) 71.7 (48.0-80.0) % Lymph % (Auto) 20.1 (16.0-40.0) % [place] % (Auto) 7.4 (0.0-15.0) % Eos % (Auto) 0.5 (0.0-7.0) % Baso % (Auto) 0.3 (0.0-1.5) % Neut # (Auto) 8.2 H (1.4-5.7) K/uL Lymph # (Auto) 2.3 (0.6-2.4) K/uL [place] # (Auto) 0.9 H (0.0-0.8) K/uL Eos # (Auto) 0.1 (0.0-0.7) K/uL Baso # (Auto) 0.0 (0.0-0.1) K/uL Nucleated RBC % 0.0 /100WBC Nucleated RBCs # 0 K/uL INR 1.19 Sodium 141 (136-145) mmol/L Potassium 3.5 (3.5-5.1) mmol/L Chloride 103 (98-107) mmol/L Carbon Dioxide 24.1 (21.0-32.0) mmol/L BUN 7 (7.0-18.0) mg/dL Creatinine 0.7 (0.6-1.0) mg/dL Est Cr Clr Drug Dosing 104.01 mL/min Estimated GFR (MDRD) > 60.0 ml/min Glucose 89 (74-106) mg/dL POC Glucose (60-110) mg/dL Calcium 8.3 L (8.5-10.1) mg/dL Magnesium (1.8-2.4) mg/dL Total Bilirubin 0.8 (0.2-1.0) mg/dL AST 17 (15-37) IU/L ALT 17 (14-63) IU/L Alkaline Phosphatase 95 (46-116) U/L Troponin I < 0.050 (0.000-0.056) ng/mL Total Protein 7.6 (6.4-8.2) g/dL Albumin 3.6 (3.4-5.0) g/dL Globulin 4.0 (2.6-4.0) g/dL Albumin/Globulin Ratio 0.9 (0.9-1.6) Amylase 33 (25-115) U/L Lipase 83 (73-393) U/L Urine Color Urine Appearance Urine pH (5.0-8.0) Ur Specific [place] (1.001-1.035) Urine Protein (NEGATIVE) mg/dL Urine Glucose (UA) (NEGATIVE) mg/dL Urine Ketones (NEGATIVE) mg/dL Urine Occult Blood (NEGATIVE) Urine Nitrite (NEGATIVE) Urine Bilirubin (NEGATIVE) Urine Urobilinogen (<2.0) EU/dL Ur Leukocyte Esterase (NEGATIVE) Urine RBC (0-2/HPF) Urine WBC (0-5/HPF) Ur Epithelial Cells (NONE-FEW) Urine Bacteria (NEGATIVE) Urine HCG, Qual (NEGATIVE) Urine Opiates Screen (NEGATIVE) Ur Oxycodone Screen (NEGATIVE) Urine Methadone Screen (NEGATIVE) Ur Barbiturates Screen (NEGATIVE) Ur Phencyclidine Scrn (NEGATIVE) Ur Amphetamine Screen (NEGATIVE) U Methamphetamines Scrn (NEGATIVE) U Benzodiazepines Scrn (NEGATIVE) U Cocaine Metab Screen (NEGATIVE) U Marijuana (THC) Screen (NEGATIVE) Ethyl Alcohol < 3.0 mg/dL 09/25/19 09/25/19 09/25/19 Range/Units 03:04 03:44 03:45 WBC (4.0-11.0) K/uL RBC (4.30-5.90) M/uL Hgb (12.0-16.0) g/dL Hct (36.0-46.0) % MCV (80.0-98.0) fL MCH (27.0-32.0) pg MCHC (31.0-37.0) g/dL RDW Std Deviation (28.0-62.0) fl RDW Coeff of Jin (11.0-15.0) % Plt Count (150-400) K/uL MPV (7.40-12.00) fL Neut % (Auto) (48.0-80.0) % Lymph % (Auto) (16.0-40.0) % [place] % (Auto) (0.0-15.0) % Eos % (Auto) (0.0-7.0) % Baso % (Auto) (0.0-1.5) % Neut # (Auto) (1.4-5.7) K/uL Lymph # (Auto) (0.6-2.4) K/uL [place] # (Auto) (0.0-0.8) K/uL Eos # (Auto) (0.0-0.7) K/uL Baso # (Auto) (0.0-0.1) K/uL Nucleated RBC % /100WBC Nucleated RBCs # K/uL INR Sodium (136-145) mmol/L Potassium (3.5-5.1) mmol/L Chloride (98-107) mmol/L Carbon Dioxide (21.0-32.0) mmol/L BUN (7.0-18.0) mg/dL Creatinine (0.6-1.0) mg/dL Est Cr Clr Drug Dosing mL/min Estimated GFR (MDRD) ml/min Glucose (74-106) mg/dL POC Glucose 74 (60-110) mg/dL Calcium (8.5-10.1) mg/dL Magnesium 1.8 (1.8-2.4) mg/dL Total Bilirubin (0.2-1.0) mg/dL AST (15-37) IU/L ALT (14-63) IU/L Alkaline Phosphatase (46-116) U/L Troponin I (0.000-0.056) ng/mL Total Protein (6.4-8.2) g/dL Albumin (3.4-5.0) g/dL Globulin (2.6-4.0) g/dL Albumin/Globulin Ratio (0.9-1.6) Amylase (25-115) U/L Lipase (73-393) U/L Urine Color YELLOW Urine Appearance SLT CLOUDY Urine pH 7.0 (5.0-8.0) Ur Specific [place] 1.010 (1.001-1.035) Urine Protein NEGATIVE (NEGATIVE) mg/dL Urine Glucose (UA) NEGATIVE (NEGATIVE) mg/dL Urine Ketones NEGATIVE (NEGATIVE) mg/dL Urine Occult Blood NEGATIVE (NEGATIVE) Urine Nitrite NEGATIVE (NEGATIVE) Urine Bilirubin NEGATIVE (NEGATIVE) Urine Urobilinogen 0.2 (<2.0) EU/dL Ur Leukocyte Esterase TRACE H (NEGATIVE) Urine RBC 0-1 (0-2/HPF) Urine WBC 0-2 (0-5/HPF) Ur Epithelial Cells MODERATE (NONE-FEW) Urine Bacteria FEW (NEGATIVE) Urine HCG, Qual (NEGATIVE) Urine Opiates Screen (NEGATIVE) Ur Oxycodone Screen (NEGATIVE) Urine Methadone Screen (NEGATIVE) Ur Barbiturates Screen (NEGATIVE) Ur Phencyclidine Scrn (NEGATIVE) Ur Amphetamine Screen (NEGATIVE) U Methamphetamines Scrn (NEGATIVE) U Benzodiazepines Scrn (NEGATIVE) U Cocaine Metab Screen (NEGATIVE) U Marijuana (THC) Screen (NEGATIVE) Ethyl Alcohol mg/dL 09/25/19 09/25/19 Range/Units 03:45 03:45 WBC (4.0-11.0) K/uL RBC (4.30-5.90) M/uL Hgb (12.0-16.0) g/dL Hct (36.0-46.0) % MCV (80.0-98.0) fL MCH (27.0-32.0) pg MCHC (31.0-37.0) g/dL RDW Std Deviation (28.0-62.0) fl RDW Coeff of Jin (11.0-15.0) % Plt Count (150-400) K/uL MPV (7.40-12.00) fL Neut % (Auto) (48.0-80.0) % Lymph % (Auto) (16.0-40.0) % [place] % (Auto) (0.0-15.0) % Eos % (Auto) (0.0-7.0) % Baso % (Auto) (0.0-1.5) % Neut # (Auto) (1.4-5.7) K/uL Lymph # (Auto) (0.6-2.4) K/uL [place] # (Auto) (0.0-0.8) K/uL Eos # (Auto) (0.0-0.7) K/uL Baso # (Auto) (0.0-0.1) K/uL Nucleated RBC % /100WBC Nucleated RBCs # K/uL INR Sodium (136-145) mmol/L Potassium (3.5-5.1) mmol/L Chloride (98-107) mmol/L Carbon Dioxide (21.0-32.0) mmol/L BUN (7.0-18.0) mg/dL Creatinine (0.6-1.0) mg/dL Est Cr Clr Drug Dosing mL/min Estimated GFR (MDRD) ml/min Glucose (74-106) mg/dL POC Glucose (60-110) mg/dL Calcium (8.5-10.1) mg/dL Magnesium (1.8-2.4) mg/dL Total Bilirubin (0.2-1.0) mg/dL AST (15-37) IU/L ALT (14-63) IU/L Alkaline Phosphatase (46-116) U/L Troponin I (0.000-0.056) ng/mL Total Protein (6.4-8.2) g/dL Albumin (3.4-5.0) g/dL Globulin (2.6-4.0) g/dL Albumin/Globulin Ratio (0.9-1.6) Amylase (25-115) U/L Lipase (73-393) U/L Urine Color Urine Appearance Urine pH (5.0-8.0) Ur Specific [place] (1.001-1.035) Urine Protein (NEGATIVE) mg/dL Urine Glucose (UA) (NEGATIVE) mg/dL Urine Ketones (NEGATIVE) mg/dL Urine Occult Blood (NEGATIVE) Urine Nitrite (NEGATIVE) Urine Bilirubin (NEGATIVE) Urine Urobilinogen (<2.0) EU/dL Ur Leukocyte Esterase (NEGATIVE) Urine RBC (0-2/HPF) Urine WBC (0-5/HPF) Ur Epithelial Cells (NONE-FEW) Urine Bacteria (NEGATIVE) Urine HCG, Qual NEGATIVE (NEGATIVE) Urine Opiates Screen NEGATIVE (NEGATIVE) Ur Oxycodone Screen NEGATIVE (NEGATIVE) Urine Methadone Screen NEGATIVE (NEGATIVE) Ur Barbiturates Screen NEGATIVE (NEGATIVE) Ur Phencyclidine Scrn NEGATIVE (NEGATIVE) Ur Amphetamine Screen NEGATIVE (NEGATIVE) U Methamphetamines Scrn NEGATIVE (NEGATIVE) U Benzodiazepines Scrn NEGATIVE (NEGATIVE) U Cocaine Metab Screen NEGATIVE (NEGATIVE) U Marijuana (THC) Screen NEGATIVE (NEGATIVE) Ethyl Alcohol mg/dL Result Diagrams: 09/25/19 03:04 09/25/19 03:04 Problem List Initiated/Reviewed/Updated: Yes Orders Last 24hrs: Active Orders 24 hr Category Date Time Status Patient Status [ADT] Stat ADT 09/25/19 04:33 Active Blood Glucose Check, Bedside [RC] ONETIME Care 09/25/19 03:16 Active CIWAA Assessment [RC] Q4H Care 09/25/19 07:08 Active Cardiac Monitoring [RC] . DIRECTED Care 09/25/19 02:57 Active EKG Documentation Completion [RC] STAT Care 09/25/19 02:57 Active Intake and Output [RC] QSHIFT Care 09/25/19 07:09 Active Oxygen Therapy [RC] PRN Care 09/25/19 07:09 Active Oxygen Therapy, ED [RC] ASDIRECTED Care 09/25/19 02:57 Active Pulse Oximetry [RC] ASDIRECTED Care 09/25/19 02:57 Active Up ad Hallie [RC] ASDIRECTED Care 09/25/19 07:09 Active VTE/DVT Education [RC] PER UNIT ROUTINE Care 09/25/19 07:09 Active Vital Signs [RC] Q4H Care 09/25/19 07:09 Active Regular Diet [DIET] Diet 09/25/19 Breakfast Active CBC WITH AUTO DIFF [HEME] AM Lab 09/26/19 05:11 Ordered COMPREHENSIVE METABOLIC PN,CMP [CHEM] AM Lab 09/26/19 05:11 Ordered CULTURE URINE [RM] Stat Lab 09/25/19 03:45 Received MAGNESIUM [CHEM] Routine Lab 09/25/19 07:13 Ordered Acetaminophen [Tylenol] Med 09/25/19 07:09 Ordered 650 mg PO Q4H PRN Enoxaparin [Lovenox] Med 09/25/19 07:15 Ordered 40 mg SUBCUT Q24H Folic Acid Med 09/25/19 21:00 Ordered 1 mg PO BEDTIME LORazepam [Ativan] Med 09/25/19 06:20 Active 1 mg IVPUSH Q4H PRN LORazepam [Ativan] Med 09/25/19 07:14 Ordered 2 mg IVPUSH ONETIME PRN MVI, Adult with Vitamin K [Infuvite Adult] 10 ml Med 09/25/19 03:25 Active Thiamine [Vitamin B-1] 100 mg Folic Acid 1 mg Sodium Chloride 0.9% [Normal Saline] 1,000 ml IV ONETIME Ondansetron [Zofran ODT] Med 09/25/19 07:09 Ordered 4 mg PO Q4H PRN Ondansetron [Zofran] Med 09/25/19 07:09 Ordered 4 mg IVPUSH Q4H PRN Sodium Chloride 0.9% [Saline Flush] Med 09/25/19 02:57 Active 10 ml FLUSH ASDIRECTED PRN Sodium Chloride 0.9% [Saline Flush] Med 09/25/19 02:57 Active 2.5 ml FLUSH ASDIRECTED PRN Thiamine [Vitamin B-1] Med 09/25/19 21:00 Ordered 100 mg PO BEDTIME Convert IV to Saline Lock [OM.PC] Routine Oth 09/25/19 06:19 Ordered Saline Lock Insert [OM.PC] Stat Oth 09/25/19 02:57 Ordered Resuscitation Status Routine Resus Stat 09/25/19 07:09 Ordered Medication Orders Acetaminophen (Tylenol) 650 mg PO Q4H PRN PRN Reason: Pain (Mild 1-3)/fever Enoxaparin Sodium (Lovenox) 40 mg SUBCUT Q24H JAYLEEN Folic Acid (Folic Acid) 1 mg PO BEDTIME JAYLEEN Multivitamins/Minerals 10 ml/Thiamine HCl 100 mg/ Folic Acid 1 mg/ Sodium Chloride 1,011.2 mls @ 150 mls/hr IV ONETIME ONE Stop: 09/25/19 10:09 Last Admin: 09/25/19 04:29 Dose: 150 mls/hr Lorazepam (Ativan) 1 mg IVPUSH Q4H PRN; Protocol PRN Reason: Anxiety Lorazepam (Ativan) 2 mg IVPUSH ONETIME PRN PRN Reason: Seizures Ondansetron HCl (Zofran Odt) 4 mg PO Q4H PRN PRN Reason: nausea, able to take PO Ondansetron HCl (Zofran) 4 mg IVPUSH Q4H PRN PRN Reason: Nausea Sodium Chloride (Saline Flush) 10 ml FLUSH ASDIRECTED PRN PRN Reason: Keep Vein Open Sodium Chloride (Saline Flush) 2.5 ml FLUSH ASDIRECTED PRN PRN Reason: Keep Vein Open Thiamine HCl (Vitamin B-1) 100 mg PO BEDTIME [facility] Assessment/Plan Comment:: A: 1. Acute alcohol withdrawal 2. Alcohol abuse P: 1. Will treat for alcohol withdrawal with Ativan PRN. [facility] protocol. Will hydrate with NS and start folic acid, thiamine supplementation. Will provide local resources to help abstain from alcohol. Dispo: later today.
[2019-09-25] MEDS ORDERED: Magnesium Sulfate/Water 2 GM in Premix Bag 1 BAG IV ONE (07:31)
[2019-09-25] MEDS: Enoxaparin 40 MG/0.4 ML Syringe SUBCUT SCH (07:53)
[2019-09-25] MEDS ORDERED: Omeprazole 20 MG Cap.CR PO ONE (08:35)
[2019-09-25] MEDS: Ondansetron 4 MG/2 ML SDV IVPUSH PRN ×2 (08:58→13:18)
[2019-09-25] MEDS: LORazepam 2 MG/ML SDV IVPUSH PRN ×3 (09:07→20:52)
[2019-09-25] MEDS ORDERED: Thiamine 100 MG Tab PO SCH (21:00)
[2019-09-25] MEDS ORDERED: Folic Acid 1 MG Tab PO SCH (21:00)
[2019-09-26] MEDS: Enoxaparin 40 MG/0.4 ML Syringe SUBCUT SCH (06:19)
[2019-09-26 06:27] LABS: BLOOD UREA NITROGEN,BUN 7 mg/dL (7.0-18.0); CHLORIDE,CL 106 mmol/L (98-107); GLUCOSE RANDOM 81 mg/dL (74-106); POTASSIUM,K 4.1 mmol/L (3.5-5.1); SODIUM,NA 141 mmol/L (136-145)
[2019-09-26 08:06] VITALS: BP 135/73; PULSE 66
[2019-09-26] MEDS ORDERED: Omeprazole 20 MG Cap.CR PO SCH (09:00)
--- NOTE | 2019-09-26 10:24 | PCM.DCSUM1 ---
<Ron Lazo - Last Filed: 09/26/19 11:05> Discharge Summary - Hospital Course Free Text/Narrative:: 34 y/o female with history of alcohol abuse presented to the ER complaining of epigastric pain and anxiety. She was admitted for acute alcohol withdrawal. Patient states that she has been drinking on a daily basis about 2 small vodka bottles for the past 1 week. She was started on CIWA monitoring and Ativan PRN for withdrawal symptoms. Initially she needed some intermittent ativan however at time of discharge her CIWA scores were <8 in the past 24 hours. She stated she was feeling much better. No nausea or vomiting. Tolerating PO intake. She was discharged home on folic acid, thiamine, zofran and omeprazole. In addition , she was advised to abstain from alcohol and any mood altering substances. She stated that she had a follow-up appointment with [facility] in [place] for alcohol abuse. - Discharge Data Discharge Date: 09/26/19 Discharge Disposition: Home, Self-Care 01 Condition: Stable - Referral to Home Health Primary Care Physician: Sharif Call MD - Patient Instructions Diet: Regular Diet as Tolerated Activity: As Tolerated Notify Provider of: Fever, Increased Pain, Swelling and Redness, Nausea and/or Vomiting Other/Special Instructions: Please, abstain from alcohol and any mood altering substances. - Discharge Plan *PRESCRIPTION DRUG MONITORING PROGRAM REVIEWED*: Not Applicable *COPY OF PRESCRIPTION DRUG MONITORING REPORT IN PATIENT SKYLAR: Not Applicable Prescriptions/Med Rec: Folic Acid 1 mg PO BEDTIME #30 tablet Omeprazole 20 mg PO ACBREAKFAST #30 cap.cr Ondansetron [Zofran ODT] 4 mg PO Q4H PRN #15 tab.dis PRN Reason: nausea, able to take PO Thiamine [Vitamin B-1] 100 mg PO BEDTIME #30 tablet Home Medications: Home Meds Naltrexone 50 mg PO BEDTIME 09/25/19 [History] Folic Acid 1 mg PO BEDTIME #30 tablet 09/26/19 [Rx] Omeprazole 20 mg PO ACBREAKFAST #30 cap.cr 09/26/19 [Rx] Ondansetron [Zofran ODT] 4 mg PO Q4H PRN #15 tab.dis 09/26/19 [Rx] Thiamine [Vitamin B-1] 100 mg PO BEDTIME #30 tablet 09/26/19 [Rx] Patient Handouts: Ondansetron oral dissolving tablet, Thiamine, Vitamin B1 tablets, Folic Acid, Vitamin B9 tablets, Alcohol Withdrawal Syndrome, Easy-to- Read, Omeprazole tablets (OTC) Referrals: [facility] [Outside] Sharif Call MD [Primary Care Provider] - 10/10/19 2:45 pm - Discharge Summary/Plan Comment DC Time >30 min.: No - Patient Data Vitals - Most Recent: Last Vital Signs Temp 36.3 C 09/26/19 07:15 Pulse 66 09/26/19 07:15 Resp 16 09/26/19 07:15 BP 135/73 09/26/19 07:15 Pulse Ox 94 L 09/26/19 07:15 Weight - Most Recent: 124.647 kg I&O - Last 24 hours: Intake & Output 09/25/19 09/26/19 09/26/19 22:59 06:59 14:59 Intake Total 1690 500 Output Total 1600 950 Balance 90 -450 Lab Results - Last 24 hrs: Laboratory Results - last 24 hr 09/25/19 09/26/19 09/26/19 Range/Units 21:53 06:01 06:01 WBC 6.86 (4.0-11.0) K/uL RBC 3.89 L (4.30-5.90) M/uL Hgb 10.8 L (12.0-16.0) g/dL Hct 34.2 L (36.0-46.0) % MCV 87.9 (80.0-98.0) fL MCH 27.8 (27.0-32.0) pg MCHC 31.6 (31.0-37.0) g/dL RDW Std Deviation 45.5 (28.0-62.0) fl RDW Coeff of Jin 14 (11.0-15.0) % Plt Count 225 (150-400) K/uL MPV 9.80 (7.40-12.00) fL Neut % (Auto) 68.1 (48.0-80.0) % Lymph % (Auto) 22.9 (16.0-40.0) % [place] % (Auto) 7.4 (0.0-15.0) % Eos % (Auto) 1.3 (0.0-7.0) % Baso % (Auto) 0.3 (0.0-1.5) % Neut # (Auto) 4.7 (1.4-5.7) K/uL Lymph # (Auto) 1.6 (0.6-2.4) K/uL [place] # (Auto) 0.5 (0.0-0.8) K/uL Eos # (Auto) 0.1 (0.0-0.7) K/uL Baso # (Auto) 0.0 (0.0-0.1) K/uL Nucleated RBC % 0.0 /100WBC Nucleated RBCs # 0 K/uL Sodium 141 (136-145) mmol/L Potassium 4.1 (3.5-5.1) mmol/L Chloride 106 (98-107) mmol/L Carbon Dioxide 26.0 (21.0-32.0) mmol/L BUN 7 (7.0-18.0) mg/dL Creatinine 0.7 (0.6-1.0) mg/dL Est Cr Clr Drug Dosing 104.01 mL/min Estimated GFR (MDRD) > 60.0 ml/min Glucose 81 (74-106) mg/dL POC Glucose 75 (60-110) mg/dL Calcium 8.3 L (8.5-10.1) mg/dL Total Bilirubin 0.5 (0.2-1.0) mg/dL AST 15 (15-37) IU/L ALT 18 (14-63) IU/L Alkaline Phosphatase 75 (46-116) U/L Total Protein 6.5 (6.4-8.2) g/dL Albumin 3.0 L (3.4-5.0) g/dL Globulin 3.5 (2.6-4.0) g/dL Albumin/Globulin Ratio 0.9 (0.9-1.6) GIAN Results - Last 24 hrs: Microbiology 09/25/19 03:45 Urine Culture - Final Urine, Clean Catch MIXED VITALY >100,000 CFU/ML Med Orders - Current: Current Medications Acetaminophen (Tylenol) 650 mg PO Q4H PRN PRN Reason: Pain (Mild 1-3)/fever Last Admin: 09/25/19 15:51 Dose: 650 mg Enoxaparin Sodium (Lovenox) 40 mg SUBCUT Q24H JALYEEN Last Admin: 09/26/19 06:19 Dose: 40 mg Folic Acid (Folic Acid) 1 mg PO BEDTIME JAYLEEN Last Admin: 09/25/19 20:52 Dose: 1 mg Lorazepam (Ativan) 1 mg IVPUSH Q4H PRN; Protocol PRN Reason: Anxiety Last Admin: 09/25/19 20:52 Dose: 1 mg Lorazepam (Ativan) 2 mg IVPUSH ONETIME PRN PRN Reason: Seizures Omeprazole (Omeprazole) 20 mg PO ACBREAKFAST [facility] Last Admin: 09/26/19 08:48 Dose: 20 mg Ondansetron HCl (Zofran Odt) 4 mg PO Q4H PRN PRN Reason: nausea, able to take PO Last Admin: 09/26/19 08:48 Dose: 4 mg Ondansetron HCl (Zofran) 4 mg IVPUSH Q4H PRN PRN Reason: Nausea Last Admin: 09/25/19 13:18 Dose: 4 mg Naltrexone 50 Mg 1 each PO BEDTIME [facility] Last Admin: 09/25/19 20:52 Dose: 1 each Sodium Chloride (Saline Flush) 10 ml FLUSH ASDIRECTED PRN PRN Reason: Keep Vein Open Sodium Chloride (Saline Flush) 2.5 ml FLUSH ASDIRECTED PRN PRN Reason: Keep Vein Open Thiamine HCl (Vitamin B-1) 100 mg PO BEDTIME [facility] Last Admin: 09/25/19 20:52 Dose: 100 mg Discontinued Medications Folic Acid (Folic Acid) 50 mg .ROUTE .STK-MED ONE Stop: 09/25/19 04:06 Sodium Chloride (Normal Saline) 1,000 mls @ 999 mls/hr IV STAT ONE Stop: 09/25/19 04:17 Last Admin: 09/25/19 03:26 Dose: 999 mls/hr Multivitamins/Minerals 10 ml/Thiamine HCl 100 mg/ Folic Acid 1 mg/ Sodium Chloride 1,011.2 mls @ 150 mls/hr IV ONETIME ONE Stop: 09/25/19 10:09 Last Admin: 09/25/19 04:29 Dose: 150 mls/hr Magnesium Sulfate 2 gm/ Premix 50 mls @ 25 mls/hr IV ONETIME ONE Stop: 09/25/19 09:30 Last Admin: 09/25/19 07:53 Dose: 25 mls/hr Lorazepam (Ativan) 1 mg IVPUSH ONETIME ONE Stop: 09/25/19 03:18 Last Admin: 09/25/19 03:27 Dose: 1 mg Multivitamins/Minerals (Infuvite Adult) 10 ml .ROUTE .STK-MED ONE Stop: 09/25/19 04:06 Omeprazole (Omeprazole) 20 mg PO ONETIME ONE Stop: 09/25/19 08:36 Last Admin: 09/25/19 08:58 Dose: 20 mg Ondansetron HCl (Zofran) 4 mg IVPUSH ONETIME ONE Stop: 09/25/19 03:18 Last Admin: 09/25/19 03:27 Dose: 4 mg Pantoprazole Sodium (Protonix Iv) 80 mg IVPUSH .BOLUS ONE Stop: 09/25/19 03:18 Last Admin: 09/25/19 03:27 Dose: 80 mg Sodium Chloride (Saline Flush) 10 ml FLUSH ASDIRECTED PRN PRN Reason: Keep Vein Open Sodium Chloride (Saline Flush) 2.5 ml FLUSH ASDIRECTED PRN PRN Reason: Keep Vein Open Thiamine HCl (Vitamin B-1) 200 mg .ROUTE .STK-MED ONE Stop: 09/25/19 04:06 <Joao Grimes - Last Filed: 09/28/19 15:46> Discharge Summary - Referral to Home Health Primary Care Physician: Sharif Call MD - Patient Data Vitals - Most Recent: Last Vital Signs Temp 36.3 C 09/26/19 07:15 Pulse 66 09/26/19 07:15 Resp 16 09/26/19 07:15 BP 135/73 09/26/19 07:15 Pulse Ox 94 L 09/26/19 07:15 Med Orders - Current: Current Medications Discontinued Medications Acetaminophen (Tylenol) 650 mg PO Q4H PRN PRN Reason: Pain (Mild 1-3)/fever Last Admin: 09/25/19 15:51 Dose: 650 mg Enoxaparin Sodium (Lovenox) 40 mg SUBCUT Q24H JAYLEEN Last Admin: 09/26/19 06:19 Dose: 40 mg Folic Acid (Folic Acid) 1 mg PO BEDTIME JAYLEEN Last Admin: 09/25/19 20:52 Dose: 1 mg Folic Acid (Folic Acid) 50 mg .ROUTE .STK-MED ONE Stop: 09/25/19 04:06 Sodium Chloride (Normal Saline) 1,000 mls @ 999 mls/hr IV STAT ONE Stop: 09/25/19 04:17 Last Admin: 09/25/19 03:26 Dose: 999 mls/hr Multivitamins/Minerals 10 ml/Thiamine HCl 100 mg/ Folic Acid 1 mg/ Sodium Chloride 1,011.2 mls @ 150 mls/hr IV ONETIME ONE Stop: 09/25/19 10:09 Last Admin: 09/25/19 04:29 Dose: 150 mls/hr Magnesium Sulfate 2 gm/ Premix 50 mls @ 25 mls/hr IV ONETIME ONE Stop: 09/25/19 09:30 Last Admin: 09/25/19 07:53 Dose: 25 mls/hr Lorazepam (Ativan) 1 mg IVPUSH ONETIME ONE Stop: 09/25/19 03:18 Last Admin: 09/25/19 03:27 Dose: 1 mg Lorazepam (Ativan) 1 mg IVPUSH Q4H PRN; Protocol PRN Reason: Anxiety Last Admin: 09/25/19 20:52 Dose: 1 mg Lorazepam (Ativan) 2 mg IVPUSH ONETIME PRN PRN Reason: Seizures Multivitamins/Minerals (Infuvite Adult) 10 ml .ROUTE .STK-MED ONE Stop: 09/25/19 04:06 Omeprazole (Omeprazole) 20 mg PO ONETIME ONE Stop: 09/25/19 08:36 Last Admin: 09/25/19 08:58 Dose: 20 mg Omeprazole (Omeprazole) 20 mg PO ACBREAKFAST JAYLEEN Last Admin: 09/26/19 08:48 Dose: 20 mg Ondansetron HCl (Zofran) 4 mg IVPUSH ONETIME ONE Stop: 09/25/19 03:18 Last Admin: 09/25/19 03:27 Dose: 4 mg Ondansetron HCl (Zofran Odt) 4 mg PO Q4H PRN PRN Reason: nausea, able to take PO Last Admin: 09/26/19 08:48 Dose: 4 mg Ondansetron HCl (Zofran) 4 mg IVPUSH Q4H PRN PRN Reason: Nausea Last Admin: 09/25/19 13:18 Dose: 4 mg Pantoprazole Sodium (Protonix Iv) 80 mg IVPUSH .BOLUS ONE Stop: 09/25/19 03:18 Last Admin: 09/25/19 03:27 Dose: 80 mg Naltrexone 50 Mg 1 each PO BEDTIME JAYLEEN Last Admin: 09/25/19 20:52 Dose: 1 each Sodium Chloride (Saline Flush) 10 ml FLUSH ASDIRECTED PRN PRN Reason: Keep Vein Open Sodium Chloride (Saline Flush) 2.5 ml FLUSH ASDIRECTED PRN PRN Reason: Keep Vein Open Sodium Chloride (Saline Flush) 10 ml FLUSH ASDIRECTED PRN PRN Reason: Keep Vein Open Sodium Chloride (Saline Flush) 2.5 ml FLUSH ASDIRECTED PRN PRN Reason: Keep Vein Open Thiamine HCl (Vitamin B-1) 100 mg PO BEDTIME JAYLEEN Last Admin: 09/25/19 20:52 Dose: 100 mg Thiamine HCl (Vitamin B-1) 200 mg .ROUTE .STK-MED ONE Stop: 09/25/19 04:06 - Free Text/Narrative Note: I have seen and evaluated the patient with the resident. I have discussed findings and treatment plan with the resident. I agree with the assessment and plan outlined in the following note.
== END 2019-09-26 11:40 | disposition home or self-care (01) ==
LOC: MW.ED 02:54 → MW.MS 04:33
PROVIDERS: ADMIT Internal Medicine; ATTEND Internal Medicine
DX: F10.230 Alcohol dependence with withdrawal, uncomplicated (principal); Z88.0 Allergy status to penicillin; Z79.899 Other long term (current) drug therapy
CPT/HCPCS: 36415; 71045; 80053; 80305; 80320; 81001; 81025; 82150; 82962; 83690; 83735; 84484; 85025; 85610; 87086; 93005; 96361; 96374; 96375; 99285; A9270; C9113; J1650; J2060; J2405; J3411; J3475; J7040; G0480

== ENCOUNTER 2019-12-12 17:29 | Emergency (ER) | payer BC ==
[2019-12-12] MEDS ORDERED: Sodium Chloride 0.9% 1,000 ML IV ONE (18:41)
--- NOTE | 2019-12-12 18:49 | EDM.PDOCBH ---
ED HPI GENERAL MEDICAL PROBLEM - General Chief Complaint: Drug or Alcohol Abuse Stated Complaint: ALCOHOL POISONING Time Seen by Provider: 12/12/19 18:38 Source of Information: Reports: Patient History Limitations: Reports: No Limitations - History of Present Illness INITIAL COMMENTS - FREE TEXT/NARRATIVE: HISTORY AND PHYSICAL: History of present illness: Patient is a 34-year-old female who presents to the emergency room with her requesting a medical screening exam. Patient states that she has been abstinent from alcohol for several months but "fell off the bandwagon" 2 days ago and has been drinking fairly consistently since then. states he wanted her evaluated as they will be returning to [place] and wanted to make sure she was "okay". Patient denies any fever, chills, headache, change in vision, syncope or near syncope. Denies any chest pain, back pain, shortness of breath or cough. Denies any abdominal pain, nausea, vomiting, diarrhea, constipation or dysuria. Has not noted any blood in urine or stool. Patient has been eating and drinking appropriately. Review of systems: As per history of present illness and below otherwise all systems reviewed and negative. Past medical history: As per history of present illness and as reviewed below otherwise noncontributory. Surgical history: As per history of present illness and as reviewed below otherwise noncontributory. Social history: See social history for further information Family history: As per history of present illness and as reviewed below otherwise noncontributory. Physical exam: General: Well-developed and well-nourished 34-year-old female. Alert and oriented. Nontoxic-appearing and in no acute distress. Patient is able to speak in full sentences and is up ambulatory in room without any difficulty or deficits. HEENT: Atraumatic, normocephalic, pupils equal and reactive bilaterally, negative for conjunctival pallor or scleral icterus, mucous membranes moist, TMs normal bilaterally, throat clear, neck supple, nontender, trachea midline. No drooling or trismus noted. No meningeal signs. No hot potato voice noted. Lungs: Clear to auscultation, breath sounds equal bilaterally, chest nontender. Heart: S1S2, regular rate and rhythm without overt murmur Abdomen: Soft, nondistended, nontender. Negative for masses or hepatosplenomegaly. Negative for costovertebral tenderness. Skin: Intact, warm, dry. No lesions or rashes noted. Extremities: Atraumatic, moves all extremities per self without difficulty or deficits, negative for cords or calf pain. Neurovascular unremarkable. Neuro: Awake, alert, oriented. Cranial nerves II through XII unremarkable. Cerebellum unremarkable. Motor and sensory unremarkable throughout. Exam nonfocal. Notes: The states he just wants a medical screening exam. I did inform them that she is vitally stable and alert/oriented and ambulatory without any difficulty. I did offer to do some basic lab work and IV fluids while we were waiting for the lab results. states he does not want any diagnostics completed. He is aware that my physical exam and review of her vital signs only gives us a limited amount of information. Patient states she has not drank in the past 4 to 6 hours. Patient is agreeable to allowing me to do a bedside glucose check. They would like to be discharged home without any further evaluation. Supportive care measures were reviewed and discussed. Voices understanding and is agreeable to plan of care. Denies any further questions or concerns at this time. Diagnostics: Declines Therapeutics: Declines Prescription: None Impression: Alcohol abuse Encounter for medical screening exam Plan: 1. Stop drinking alcohol; please consider help if this becomes a problem. 2. Drink plenty of fluids. 3. Follow-up with your primary care provider as we discussed. Return to the ED as needed and as discussed. Definitive disposition and diagnosis as appropriate pending reevaluation and review of above. - Related Data Allergies Allergy/AdvReac Type Severity Reaction Status Date / Time Penicillins Allergy Rash Verified 12/12/19 18:41 Home Meds: Home Meds Naltrexone 50 mg PO BEDTIME 09/25/19 [History] Folic Acid 1 mg PO BEDTIME #30 tablet 09/26/19 [Rx] Omeprazole 20 mg PO ACBREAKFAST #30 cap.cr 09/26/19 [Rx] Ondansetron [Zofran ODT] 4 mg PO Q4H PRN #15 tab.dis 09/26/19 [Rx] Thiamine [Vitamin B-1] 100 mg PO BEDTIME #30 tablet 09/26/19 [Rx] Past Medical History HEENT History: Reports: Impaired Vision, Other (See Below) Other HEENT History: wears glasses Gastrointestinal History: Reports: None Genitourinary History: Reports: None 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: Psychiatric History: Reports: Anxiety, Other (See Below) Other Psychiatric History: post depression - Infectious Disease History Infectious Disease History: Reports: Chicken Pox - Past Surgical History HEENT Surgical History: Reports: None GI Surgical History: Reports: Bariatric Procedure Female Surgical History: Reports: Section Social & Family History - Family History Family Medical History: Noncontributory - Tobacco Use Smoking Status *Q: Never Smoker - Caffeine Use Caffeine Use: Reports: None Caffeine Use Comment: 4 drinks daily - Recreational Drug Use Recreational Drug Use: No ED ROS GENERAL - Review of Systems Review Of Systems: Comprehensive ROS is negative, except as noted in HPI. ED EXAM, BEHAVIORAL HEALTH - Physical Exam Exam: See Below (See dictation) COURSE, BEHAVIORAL HEALTH COMP - Course Vital Signs: Last Vital Signs Temp 98.8 F 12/12/19 18:37 Pulse 88 12/12/19 18:54 Resp 16 12/12/19 18:54 BP 116/80 12/12/19 18:54 Pulse Ox 95 12/12/19 18:54 Orders, Labs, Meds: Laboratory Tests 12/12/19 Range/Units 18:48 POC Glucose 128 H (60-110) mg/dL Medications Discontinued Medications Generic Name Dose Route Start Last Admin Trade Name Freq PRN Reason Stop Dose Admin Sodium Chloride 1,000 mls @ 999 mls/hr 12/12/19 18:41 Normal Saline IV 12/12/19 19:41 STAT ONE Departure - Departure Time of Disposition: 18:49 Disposition: Home, Self-Care 01 Clinical Impression: Encounter for medical screening examination, Alcohol abuse - Discharge Information Instructions: Alcohol Abuse and Nutrition Referrals: Sharif Call MD [Primary Care Provider] - Forms: ED Department Discharge Additional Instructions: The following information is given to patients seen in the emergency department who are being discharged to home. This information is to outline your options for follow-up care. We provide all patients seen in our emergency department with a follow-up referral. The need for follow-up, as well as the timing and circumstances, are variable depending upon the specifics of your emergency department visit. If you don't have a primary care physician on staff, we will provide you with a referral. We always advise you to contact your personal physician following an emergency department visit to inform them of the circumstance of the visit and for follow-up with them and/or the need for any referrals to a consulting specialist. The emergency department will also refer you to a specialist when appropriate. This referral assures that you have the opportunity for follow-up care with a specialist. All of these measure are taken in an effort to provide you with optimal care, which includes your follow-up. Under all circumstances we always encourage you to contact your private physician who remains a resource for coordinating your care. When calling for follow-up care, please make the office aware that this follow-up is from your recent emergency room visit. If for any reason you are refused follow-up, please contact the [facility] Emergency Department at and asked to speak to the emergency department charge nurse. [facility] [address] [place] [id number] [address] 1. Stop drinking alcohol; please consider help if this becomes a problem. 2. Drink plenty of fluids. 3. Follow-up with your primary care provider as we discussed. Return to the ED as needed and as discussed. Sepsis Event Note - Evaluation Sepsis Screening Result: No Definite Risk - Focused Exam Date Exam was Performed: 12/14/19 Time Exam was Performed: 10:15
[2019-12-12 18:56] VITALS: BP 116/80; PULSE 88
== END 2019-12-12 18:55 | disposition home or self-care (01) ==
LOC: MW.ED 17:29
DX: F10.10 Alcohol abuse, uncomplicated (principal); F41.9 Anxiety disorder, unspecified; Z88.0 Allergy status to penicillin; Z79.899 Other long term (current) drug therapy
CPT/HCPCS: 82962; 99284

== ENCOUNTER 2021-01-07 22:59 | Emergency (ER) | payer BC ==
[2021-01-07] MEDS ORDERED: Ondansetron 4 MG Tab.DIS PO ONE (23:16)
[2021-01-07] MEDS ORDERED: Ketorolac 60 MG/2 ML SDV IM ONE (23:16)
[2021-01-07] MEDS ORDERED: HYDROmorphone 1 MG/ML Syringe IM ONE (23:16)
[2021-01-07] MEDS ORDERED: Orphenadrine 60 MG/2 ML Inj IM ONE (23:18)
--- NOTE | 2021-01-07 23:39 | EDM.PDOC ---
ED HPI GENERAL MEDICAL PROBLEM - General Chief Complaint: Back Pain or Injury Stated Complaint: BACK PAIN Time Seen by Provider: 01/07/21 23:15 - History of Present Illness INITIAL COMMENTS - FREE TEXT/NARRATIVE: HISTORY AND PHYSICAL: History of present illness: This is a 35-year-old female who has a history significant for a gastric sleeve placement (although she does take ibuprofen) who presents ER today secondary to a lower back strain that occurred earlier this morning when she was bent over she felt a spasm in her back is been having significant pain since. Patient denies any other symptomatology. Patient has any fevers, shakes, chills, nausea, vomiting, diarrhea, dysuria, frequency, urgency, hematuria. Patient reports that the pain is constant with waves of increasing spasms to her lower back. Patient denies any weakness to her upper or lower extremities. Patient denies any numbness or paresthesias to her upper, lower extremities, perineal, rectal region. Patient has any loss of bowel or bladder function. Patient denies any history of IVDA. Patient has any recent fevers. Patient reports normal gait but has severe pain with ambulation and bending over. Review of systems: As per history of present illness and below otherwise all systems reviewed and negative. Past medical history: As per history of present illness and as reviewed below otherwise noncontributory. Surgical history: As per history of present illness and as reviewed below otherwise noncontributory. Social history: No reported history of drug or alcohol abuse. Family history: As per history of present illness and as reviewed below otherwise noncontributory. Physical exam: Constitutional: Patient is oriented to person, place, and time. Appears well- developed and well-nourished. No distress. HEENT: Moist mucous membranes Head: Normocephalic and atraumatic Eyes: Right eye exhibits no discharge. Left eye exhibits no discharge. No scleral icterus Neck: Normal range of motion. No tracheal deviation present. Cardiovascular: Normal rate and regular rhythm. Pulmonary: Effort normal, no respiratory distress. Abdominal: No distention Musculoskeletal: Normal range of motion Neurologic: Alert and oriented to person, place and time. Skin: [place], warm and dry. Psychiatric: Normal mood and affect. Behavior is normal. Judgment and thought content normal. Nursing note and vital signs have been reviewed This patient was seen and evaluated during the 2019 SARS-CoV-2 novel coronavirus pandemic period. Community viral transmission is ongoing at time of this encounter and the emergency department is operating under pandemic response procedures. Patient's ER physical exam is significant for tenderness to palpation to her lower back bilaterally. Patient has no point C, T, L-spine tenderness to p alpation. Patient is neurologically intact. Patient is ambulating in the ED with stable gait. Assessment and plan: This is a 35-year-old female who presents ER today with signs and symptoms consistent with mechanical lower back pain. Patient has been given a shot of Dilaudid, Norflex in the ED will be discharged home with a prescription for Flexeril and [place] and instructed to follow-up with her primary care physician within the next 2 to 3 days for reevaluation. Return precautions been discussed with the patient including weakness to her lower extremities loss of bowel or bladder function or paresthesias to her perirectal perineal or lower extremities. Reassessment at the time of disposition demonstrates that the patient is in no acute distress. The patient has remained stable throughout the entire ED visit and is without objective evidence for acute process requiring urgent intervention or hospitalization. The patient is stable for discharge, counseling is provided as documented above, discussed symptomatic treatment and specific conditions for return. I have spoken with the patient/caregiver and discussed todays findings, in addition to providing specific details for the plan of care. Questions are answered and there is agreement with the plan. Definitive disposition and diagnosis as appropriate pending reevaluation and review of above. back pain Pain Score (Numeric/FACES): 8 - Related Data Allergies Allergy/AdvReac Type Severity Reaction Status Date / Time Penicillins Allergy Rash Verified 01/07/21 23:12 Home Meds: Home Meds Naltrexone 50 mg PO BEDTIME 09/25/19 [History] Folic Acid 1 mg PO BEDTIME #30 tablet 09/26/19 [Rx] Omeprazole 20 mg PO ACBREAKFAST #30 cap.cr 09/26/19 [Rx] Ondansetron [Zofran ODT] 4 mg PO Q4H PRN #15 tab.dis 09/26/19 [Rx] Thiamine [Vitamin B-1] 100 mg PO BEDTIME #30 tablet 09/26/19 [Rx] Acetaminophen/HYDROcodone [[place] 325-5 MG] 1 tab PO Q6H PRN #12 tablet 01/07/21 [Rx] Cyclobenzaprine [Flexeril] 10 mg PO TID PRN #20 tab 01/07/21 [Rx] Past Medical History HEENT History: Reports: Impaired Vision, Other (See Below) Other HEENT History: wears glasses Cardiovascular History: Reports: None Respiratory History: Reports: None Gastrointestinal History: Reports: None Genitourinary History: Reports: None 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: Musculoskeletal History: Reports: None Neurological History: Reports: None Psychiatric History: Reports: Anxiety Other Psychiatric History: post depression Endocrine/Metabolic History: Reports: None Insulin Pump Model and Quill Stripper: None Hematologic History: Reports: None Immunologic History: Reports: None Oncologic (Cancer) History: Reports: None Dermatologic History: Reports: None - Infectious Disease History Infectious Disease History: Reports: Chicken Pox - Past Surgical History Head Surgeries/Procedures: Reports: None HEENT Surgical History: Reports: None GI Surgical History: Reports: Bariatric Procedure Female Surgical History: Reports: Section Social & Family History - Family History Family Medical History: No Pertinent Family History - Caffeine Use Caffeine Use: Reports: Coffee, Energy Drinks Caffeine Use Comment: 4 drinks daily - Recreational Drug Use Recreational Drug Use: No ED ROS GENERAL - Review of Systems Review Of Systems: See Below ED EXAM, GENERAL - Physical Exam Exam: See Below Course - Vital Signs Last Recorded V/S: Last Vital Signs Temp 98 F 01/07/21 23:48 Pulse 90 01/07/21 23:48 Resp 16 01/07/21 23:48 BP 113/72 01/07/21 23:48 Pulse Ox 99 01/07/21 23:48 - Orders/Labs/Meds Labs: Laboratory Tests 01/07/21 Range/Units 23:20 Urine HCG, Qual NEGATIVE (NEGATIVE) Meds: Medications Discontinued Medications Generic Name Dose Route Start Last Admin Trade Name Freq PRN Reason Stop Dose Admin Hydromorphone HCl 1 mg 01/07/21 23:16 01/07/21 23:25 Dilaudid IM 01/07/21 23:17 1 mg ONETIME ONE Administration Ketorolac Tromethamine 60 mg 01/07/21 23:16 01/07/21 23:23 Toradol IM 01/07/21 23:17 Not Given ONETIME ONE Ondansetron HCl 4 mg 01/07/21 23:16 01/07/21 23:24 Zofran Odt PO 01/07/21 23:17 4 mg ONETIME ONE Administration Orphenadrine Citrate 60 mg 01/07/21 23:18 01/07/21 23:24 Norflex IM 01/07/21 23:19 60 mg ONETIME ONE Administration Departure - Departure Time of Disposition: 23:37 Disposition: Home, Self-Care 01 Condition: Good Clinical Impression: Low back pain Qualifiers: Chronicity: acute Back pain laterality: bilateral Sciatica presence: without sciatica Qualified Code(s): M54.5 - Low back pain - Discharge Information Prescriptions: Cyclobenzaprine [Flexeril] 10 mg PO TID PRN #20 tab PRN Reason: Muscle Spasm Acetaminophen/HYDROcodone [[place] 325-5 MG] 1 tab PO Q6H PRN #12 tablet PRN Reason: Pain Instructions: Acute Back Pain, Adult Referrals: Sharif Call MD [Primary Care Provider] - Forms: ED Department Discharge Additional Instructions: Your seen and evaluated in the ER today secondary to acute low back pain. You have been given a shot of Dilaudid and Norflex in the ED. Given that you have had a gastric sleeve, please speak to your doctor regarding whether or not they would want you on nonsteroidal anti-inflammatory medications such as ibuprofen. You have been given a prescription in the ED for [place] and Flexeril please take as directed. Please return to the ER if you start experiencing any loss of bowel or bladder function or numbness or paresthesias to your rectum or perineal area. The following information is given to patients seen in the emergency department who are being discharged to home. This information is to outline your options for follow-up care. We provide all patients seen in our emergency department with a follow-up referral. The need for follow-up, as well as the timing and circumstances, are variable depending upon the specifics of your emergency department visit. If you don't have a primary care physician on staff, we will provide you with a referral. We always advise you to contact your personal physician following an emergency department visit to inform them of the circumstance of the visit and for follow-up with them and/or the need for any referrals to a consulting specialist. The emergency department will also refer you to a specialist when appropriate. This referral assures that you have the opportunity for follow-up care with a specialist. All of these measure are taken in an effort to provide you with optimal care, which includes your follow-up. Under all circumstances we always encourage you to contact your private physician who remains a resource for coordinating your care. When calling for follow-up care, please make the office aware that this follow-up is from your recent emergency room visit. If for any reason you are refused follow-up, please contact the [facility] Emergency Department at and asked to speak to the emergency department charge nurse. [facility] [address] [place] [id number] [address] Sepsis Event Note (ED) - Evaluation Sepsis Screening Result: No Definite Risk
[2021-01-07 23:50] VITALS: BP 113/72; PULSE 90
== END 2021-01-07 23:48 | disposition home or self-care (01) ==
LOC: MW.ED 22:59
DX: M54.5 Low back pain (principal); Z88.0 Allergy status to penicillin
CPT/HCPCS: 81025; 96372; 99283; A9270; J1170; J2360

== ENCOUNTER 2021-02-13 19:58 | Emergency (ER) | payer BC ==
[2021-02-13 21:11] VITALS: PULSE 85
[2021-02-13] MEDS ORDERED: Ketorolac 60 MG/2 ML SDV IM ONE (21:18)
[2021-02-13] MEDS ORDERED: Benzocaine 20% Topical Spray UD MUCMEM ONE (21:19)
[2021-02-13] MEDS ORDERED: Lidocaine 2% Viscous Solution 15 ML Cup PO ONE (21:19)
[2021-02-13] MEDS ORDERED: Acetaminophen/HYDROcodone 325-5 MG Tab PO ONE (21:19)
--- NOTE | 2021-02-13 21:25 | EDM.PDOC ---
ED HPI GENERAL MEDICAL PROBLEM - General Chief Complaint: ENT Problem Stated Complaint: ABCESS Time Seen by Provider: 02/13/21 21:06 Source of Information: Reports: Patient History Limitations: Reports: No Limitations - History of Present Illness INITIAL COMMENTS - FREE TEXT/NARRATIVE: HISTORY AND PHYSICAL: History of present illness: Patient is a 35-year-old female who presents to the emergency room with complaints of right lower dental pain. She was seen by the dentist this morning for dental pain/abscess and was placed on clindamycin 300 mg 4 times daily. She has taken 2 doses although feels that the swelling has gotten larger. She has tried some [id number] Aleve for her discomfort and has not had any relief. She denies any difficulty with speech, swallowing, sore throat or any other systemic complaints. Review of systems: As per history of present illness and below otherwise all systems reviewed and negative. Past medical history: As per history of present illness and as reviewed below otherwise noncontributory. Surgical history: As per history of present illness and as reviewed below otherwise noncontributory. Social history: See social history for further information Family history: As per history of present illness and as reviewed below otherwise noncontributory. Physical exam: General: Well developed and well nourished. Alert and orientated x 3. Nontoxic in appearance and in no acute distress. Vital signs are stable and have been reviewed by me. Nursing notes were reviewed. HEENT: Atraumatic, normocephalic, pupils equal and reactive bilaterally, negative for conjunctival pallor or scleral icterus, mucous membranes moist, patient does have erythema with small pustule to the right lower gumline with soft tissue swelling noted externally. She has no for tenderness or swelling. TMs normal bilaterally, throat clear, neck supple, nontender, trachea midline. No drooling or trismus noted. No meningeal signs. No hot potato voice noted. Lungs: Clear to auscultation bilaterally. No wheezes, rales, or rhonchi. Chest nontender. Normal work of breathing, no accessory muscles used. Heart: S1S2, regular rate and rhythm without overt murmur, gallops, or rubs. No JVD. No peripheral edema Abdomen: Soft, nondistended, nontender. Skin: Intact, warm, dry. No lesions or rashes noted. Hematologic: No petechiae or purpra. Mucosa appropriate color and normal nail bed color and refill. Extremities: Atraumatic, moves all extremities per self without difficulty or deficits, negative for cords or calf pain. Neurovascular unremarkable. Neuro: Awake, alert, oriented. Cranial nerves II through XII unremarkable. Cerebellum unremarkable. Motor and sensory unremarkable throughout. Exam nonfocal. Psychiatric: Mood and affect are appropriate. Normal thought process. Answering questions appropriately. Notes: *This patient was seen and evaluated during the 2019 SARS-CoV-2 novel coronavirus pandemic period. Community viral transmission is ongoing at time of this encounter and the emergency department is operating under pandemic response procedures. Patient has a dental abscess.no concern for Mitchel's angina or other source of infection. Since the patient has only had 2 doses of the clindamycin I suggested she give it 24 to 48 hours and will give her something for pain. I have talked with the patient about today's findings, in addition to providing specific details for plan of care. Reassessment at the time of disposition demonstrates that the patient is in no acute distress. The patient is stable for discharge, counseling was provided and we discussed in great detail signs and symptoms that would prompt them to return to the Emergency Department. Medication, follow up and supportive care measures were reviewed and discussed. Voices understanding and is agreeable to plan of care. Denies any further questions or concerns at this time. Diagnostics: None Therapeutics: Toradol, dental balls Prescription: [place], diclofenac Impression: Dental abscess Plan: 1. Please take the antibiotic as prescribed. These give the antibiotics at least 24 to 48 hours to take effect. If your symptoms should worsen, new symptoms develop or anything should concern you you are always welcome to return to the emergency room for reevaluation. 2. Tylenol and/or ibuprofen as needed for pain management. "Tooth Balls" have been given to you; apply along the gumline every 2-3 hours as needed. Do not swallow these; external use only. 3. Follow-up with a dentist for definitive care. Definitive disposition and diagnosis as appropriate pending reevaluation and review of above. right sided dental pain Pain Score (Numeric/FACES): 5 - Related Data Allergies Allergy/AdvReac Type Severity Reaction Status Date / Time Penicillins Allergy Rash Verified 02/13/21 21:06 Home Meds: Home Meds Omeprazole 20 mg PO ACBREAKFAST #30 cap.cr 09/26/19 [Rx] Cyclobenzaprine [Flexeril] 10 mg PO TID PRN #20 tab 01/07/21 [Rx] Citalopram [Citalopram HBr] 40 mg PO DAILY 02/13/21 [History] Clindamycin HCl 150 mg PO QID 02/13/21 [History] Past Medical History HEENT History: Reports: Impaired Vision, Other (See Below) Other HEENT History: wears glasses Cardiovascular History: Reports: None Respiratory History: Reports: None Gastrointestinal History: Reports: None Genitourinary History: Reports: None 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: Musculoskeletal History: Reports: None Neurological History: Reports: None Psychiatric History: Reports: Anxiety Other Psychiatric History: post depression Endocrine/Metabolic History: Reports: None Insulin Pump Model and Education Finance Processor: None Hematologic History: Reports: None Immunologic History: Reports: None Oncologic (Cancer) History: Reports: None Dermatologic History: Reports: None - Infectious Disease History Infectious Disease History: Reports: Chicken Pox - Past Surgical History Head Surgeries/Procedures: Reports: None HEENT Surgical History: Reports: None GI Surgical History: Reports: Bariatric Procedure Female Surgical History: Reports: Section Social & Family History - Family History Family Medical History: No Pertinent Family History - Tobacco Use Tobacco Use Status *Q: Never Tobacco User - Caffeine Use Caffeine Use: Reports: Coffee, Energy Drinks, Soda, Tea Caffeine Use Comment: 4 drinks daily - Recreational Drug Use Recreational Drug Use: No ED ROS ENT - Review of Systems Review Of Systems: Comprehensive ROS is negative, except as noted in HPI. ED EXAM, ENT - Physical Exam Exam: See Below (See dictation) Course - Vital Signs Last Recorded V/S: Last Vital Signs Temp 98.0 F 02/13/21 21:08 Pulse 85 02/13/21 21:08 Resp 17 02/13/21 21:08 BP 161/100 H 02/13/21 21:08 Pulse Ox 100 02/13/21 21:08 - Orders/Labs/Meds Orders: Active Orders 24 hr Category Date Time Status Acetaminophen/HYDROcodone [[place] 325-5 MG] Med 02/13/21 21:19 Once 1 tab PO ONETIME ONE Benzocaine [Hurricaine One 20%] Med 02/13/21 21:19 Once 2 each MUCMEM ONETIME ONE Lidocaine 2% [Xylocaine 2% Viscous] Med 02/13/21 21:19 Once 15 ml PO ONETIME ONE Medication Orders Benzocaine (Benzocaine 20% Topical [place]d) 2 each MUCMEM ONETIME ONE Stop: 02/13/21 21:20 Lidocaine HCl (Lidocaine 2% Viscous Solution 15 Ml Cup) 15 ml PO ONETIME ONE Stop: 02/13/21 21:20 Meds: Medications Generic Name Dose Route Start Last Admin Trade Name Freq PRN Reason Stop Dose Admin Benzocaine 2 each 02/13/21 21:19 Benzocaine 20% Topical [place] MUCMEM 02/13/21 21:20 ONETIME ONE Lidocaine HCl 15 ml 02/13/21 21:19 Lidocaine 2% Viscous Solution 15 Ml Cup PO 02/13/21 21:20 ONETIME ONE Discontinued Medications Generic Name Dose Route Start Last Admin Trade Name Freq PRN Reason Stop Dose Admin Ketorolac Tromethamine 60 mg 02/13/21 21:18 Ketorolac 60 Mg/2 Ml Sdv IM 02/13/21 21:19 ONETIME ONE Departure - Departure Time of Disposition: 21:24 Disposition: Home, Self-Care 01 Clinical Impression: Dental abscess - Discharge Information Instructions: Dental Abscess, [id number] Referrals: Sharif Call MD [Primary Care Provider] - Additional Instructions: The following information is given to patients seen in the emergency department who are being discharged to home. This information is to outline your options for follow-up care. We provide all patients seen in our emergency department with a follow-up referral. The need for follow-up, as well as the timing and circumstances, are variable d epending upon the specifics of your emergency department visit. If you don't have a primary care physician on staff, we will provide you with a referral. We always advise you to contact your personal physician following an emergency department visit to inform them of the circumstance of the visit and for follow-up with them and/or the need for any referrals to a consulting specialist. The emergency department will also refer you to a specialist when appropriate. This referral assures that you have the opportunity for follow-up care with a specialist. All of these measure are taken in an effort to provide you with optimal care, which includes your follow-up. Under all circumstances we always encourage you to contact your private physician who remains a resource for coordinating your care. When calling for follow-up care, please make the office aware that this follow-up is from your recent emergency room visit. If for any reason you are refused follow-up, please contact the [facility] at and asked to speak to the emergency department charge nurse. [facility] [address] [place] [address] [facility] [address] [place] [address] Thank you for choosing the [facility] emergency department in [place] for your medical needs today. It was a pleasure caring for you. Today you were seen in the emergency department for dental pain. 1. Please take the antibiotic as prescribed. These give the antibiotics at least 24 to 48 hours to take effect. If your symptoms should worsen, new symptoms develop or anything should concern you you are always welcome to return to the emergency room for reevaluation. 2. Tylenol and/or ibuprofen as needed for pain management. "Tooth Balls" have been given to you; apply along the gumline every 2-3 hours as needed. Do not swallow these; external use only. 3. Follow-up with a dentist for definitive care. Sepsis Event Note (ED) - Evaluation Sepsis Screening Result: No Definite Risk - Focused Exam Vital Signs: Vital Signs Temp Pulse Resp BP Pulse Ox 02/13/21 21:08 98.0 F 85 17 161/100 H 100 - My Orders Last 24 Hours: My Active Orders 02/13/21 21:19 Acetaminophen/HYDROcodone [[place] 325-5 MG] 1 tab PO ONETIME ONE Benzocaine [Hurricaine One 20%] 2 each MUCMEM ONETIME ONE Lidocaine 2% [Xylocaine 2% Viscous] 15 ml PO ONETIME ONE - Assessment/Plan Last 24 Hours: My Active Orders 02/13/21 21:19 Acetaminophen/HYDROcodone [[place] 325-5 MG] 1 tab PO ONETIME ONE Benzocaine [Hurricaine One 20%] 2 each MUCMEM ONETIME ONE Lidocaine 2% [Xylocaine 2% Viscous] 15 ml PO ONETIME ONE
[2021-02-13 21:37] VITALS: BP 164/92
== END 2021-02-13 21:49 | disposition home or self-care (01) ==
LOC: MW.ED 19:58
DX: K04.7 Periapical abscess without sinus (principal); Z88.0 Allergy status to penicillin; Z79.899 Other long term (current) drug therapy
CPT/HCPCS: 96372; 99282; A9270; J1885; 99283

== ENCOUNTER 2022-04-23 09:59 | Day surgery (SDC) | payer BC ==
[~2022-04-23 09:59] MED LIST: Lactated Ringers 1,000 ML IV SCH; Lidocaine 2% 5 ML SDV ONE; Propofol 200 MG/20 ML SDV ONE; Sodium Chloride 0.9% 10 ML Syringe FLUSH PRN; Sodium Chloride 0.9% 2.5 ML Syringe FLUSH PRN; Sodium Chloride 0.9% 20 ML SDV IV PRN; fentaNYL 100 MCG/2 ML SDV ONE
[2022-04-23] MEDS ORDERED: Propofol 200 MG/20 ML SDV ONE (12:00)
[2022-04-23] MEDS ORDERED: fentaNYL 100 MCG/2 ML SDV ONE (12:00)
[2022-04-23 12:47] VITALS: BP 126/77; PULSE 64
== END 2022-04-23 13:38 | disposition home or self-care (01) ==
LOC: MW.SDS 09:59
PROVIDERS: ATTEND Surgery
DX: K52.9 Noninfective gastroenteritis and colitis, unspecified (principal); K31.7 Polyp of stomach and duodenum; K29.50 Unspecified chronic gastritis without bleeding; K31.89 Other diseases of stomach and duodenum; K31.819 Angiodysplasia of stomach and duodenum without bleeding; F41.9 Anxiety disorder, unspecified; K21.9 Gastro-esophageal reflux disease without esophagitis; D50.9 Iron deficiency anemia, unspecified; K80.20 Calculus of gallbladder without cholecystitis without obstruction; E55.9 Vitamin D deficiency, unspecified; Z88.0 Allergy status to penicillin; Z88.2 Allergy status to sulfonamides; Z79.899 Other long term (current) drug therapy; Z98.890 Other specified postprocedural states
CPT/HCPCS: 43239; 45378; 81025; J2704; J3010; J7120; 00813

== ENCOUNTER 2023-04-09 15:34 | Observation (INO) | payer BC ==
[2023-04-09 16:10] LABS: BASOPHILS ABSOLUTE AUTO 0.1 K/uL (0.0-0.1); BASOPHILS PERCENT AUTO 0.4 % (0.0-1.5); HEMATOCRIT 42.2 % (36.0-46.0); HEMOGLOBIN 14.3 g/dL (12.0-16.0); LYMPHOCYTES ABSOLUTE AUTO 1.5 K/uL (0.6-2.4); LYMPHOCYTES PERCENT AUTO 11.2 % (16.0-40.0); MEAN CORPUSCULAR HEMOGLOBIN 29.5 pg (27.0-32.0); MEAN CORPUSCULAR HGB CONC 33.9 g/dL (31.0-37.0); MONOCYTES ABSOLUTE AUTO 0.5 K/uL (0.0-0.8); MONOCYTES PERCENT AUTO 3.9 % (0.0-15.0); NEUTROPHILS ABSOLUTE AUTO 11.5 K/uL (1.4-5.7); NEUTROPHILS PERCENT AUTO 84.5 % (48.0-80.0); NRBC ABSOLUTE 0 K/uL; PLATELET COUNT,PLT 358 K/uL (150-400); RED BLOOD CELL COUNT 4.85 M/uL (4.30-5.90); WHITE BLOOD CELL COUNT,WBC 13.61 K/uL (4.0-11.0)
[2023-04-09 16:13] LABS: INR 1.34 (0.86-1.11)
[2023-04-09] MEDS ORDERED: Pantoprazole 40 MG in Sodium Chloride 0.9% 10 ML IVPUSH ONE (16:22)
[2023-04-09] MEDS ORDERED: Famotidine 20 MG/2 ML SDV IVPUSH ONE (16:22)
[2023-04-09 16:25] LABS: A/G RATIO 1.1 (0.9-1.6); BILIRUBIN TOTAL 0.7 mg/dL (0.2-1.0); CALCIUM 9.3 mg/dL (8.5-10.1); CARBON DIOXIDE,CO2 26.3 mmol/L (21.0-32.0); CREATININE 0.8 mg/dL (0.6-1.0); EST CRCL DRUG DOSING (CG) 88.38 mL/min; MAGNESIUM 1.7 mg/dL (1.8-2.4); POTASSIUM,K 3.9 mmol/L (3.5-5.1); PROTEIN TOTAL,TP 7.8 g/dL (6.4-8.2)
[2023-04-09] MEDS ORDERED: Lactated Ringers 1,000 ML IV SCH (16:30)
[2023-04-09] MEDS ORDERED: PHENobarbitaL sodium 130 MG in Sodium Chloride 0.9% 100 ML IV ONE (16:56)
[2023-04-09] MEDS ORDERED: Magnesium Hydroxide 400 MG/5 ML Susp 30 ML Cup PO ONE (16:57)
[2023-04-09] MEDS: Alum Hydro/Mag Hydro/Simeth XS 15 ML, Lidocaine 2% 5 ML PO ONE ×4 (17:13→17:53)
[2023-04-09] MEDS ORDERED: Iopamidol 755 MG/ML 500 ML Multipack Bottle IVPUSH ONE (17:38)
[2023-04-09] MEDS ORDERED: Aluminum Hydroxide/Magnesium Hydroxide/Simethicone XS Susp 30 ML Cup ONE (17:51)
[2023-04-09] MEDS ORDERED: Magnesium Sulfate/Water 2 GM in Premix Bag 1 BAG IV ONE (18:55)
[2023-04-09 19:34] LABS: APPEARANCE,URINE CLEAR; BILIRUBIN,URINE NEGATIVE (NEGATIVE); COLOR,URINE YELLOW; GLUCOSE,URINE NEGATIVE (NEGATIVE); KETONES,URINE NEGATIVE (NEGATIVE); LEUKOCYTE ESTERASE,URINE NEGATIVE (NEGATIVE); NITRITE,URINE NEGATIVE (NEGATIVE); OCCULT BLOOD,URINE TRACE-INTACT (NEGATIVE); PROTEIN,URINE NEGATIVE (NEGATIVE); UROBILINOGEN,URINE 0.2 EU/dL (<2.0)
[2023-04-09 19:42] LABS: BACTERIA,URINE FEW (NEGATIVE); EPITHELIAL CELLS,URINE FEW (NONE-FEW); WBC,URINE 0-2 (0-5/HPF)
[2023-04-09] MEDS ORDERED: Ondansetron 4 MG Tab.DIS PO PRN (21:50)
[2023-04-09] MEDS ORDERED: Ondansetron 4 MG/2 ML SDV IVPUSH PRN (21:50)
[2023-04-09] MEDS ORDERED: Magnesium Hydroxide 400 MG/5 ML Susp 30 ML Cup PO PRN (21:50)
[2023-04-09] MEDS ORDERED: LORazepam 1 MG Tab PO PRN (21:54)
[2023-04-09] MEDS ORDERED: Sodium Chloride 0.9% 1,000 ML IV SCH (22:00)
[2023-04-10] MEDS: Acetaminophen 325 MG Tab PO PRN ×2 (00:08→06:29)
[2023-04-10] MEDS: Sucralfate Suspension 1 GM/10 ML Cup PO SCH ×2 (06:29→12:02)
[2023-04-10 06:42] LABS: HEMATOCRIT 38.4 % (36.0-46.0); HEMOGLOBIN 12.7 g/dL (12.0-16.0); MEAN CORPUSCULAR HEMOGLOBIN 28.9 pg (27.0-32.0); MEAN CORPUSCULAR HGB CONC 33.1 g/dL (31.0-37.0); MEAN CORPUSCULAR VOLUME 87.3 fL (80.0-98.0); MEAN PLATELET VOLUME 9.7 fL (7.40-12.00); RED BLOOD CELL COUNT 4.4 M/uL (4.30-5.90); WHITE BLOOD CELL COUNT,WBC 7.38 K/uL (4.0-11.0)
[2023-04-10 07:15] LABS: A/G RATIO 1.1 (0.9-1.6); ALBUMIN 3.2 g/dL (3.4-5.0); BILIRUBIN TOTAL 1.4 mg/dL (0.2-1.0); CALCIUM 8.1 mg/dL (8.5-10.1); CARBON DIOXIDE,CO2 27.3 mmol/L (21.0-32.0); CREATININE 0.7 mg/dL (0.6-1.0); EST CRCL DRUG DOSING (CG) 101.01 mL/min; POTASSIUM,K 3.5 mmol/L (3.5-5.1); PROTEIN TOTAL,TP 6.1 g/dL (6.4-8.2)
[2023-04-10] MEDS ORDERED: Pantoprazole 40 MG Tab.CR PO SCH (07:30)
[2023-04-10] MEDS ORDERED: Citalopram 20 MG Tab PO SCH (09:00)
[2023-04-10 11:37] VITALS: BP 128/77; PULSE 72
== END 2023-04-10 14:00 | disposition home or self-care (01) ==
LOC: MW.ED 15:34 → MW.MS 19:37
PROVIDERS: ADMIT Internal Medicine; ATTEND Internal Medicine
DX: R07.89 Other chest pain (principal); F10.139 Alcohol abuse with withdrawal, unspecified; K21.9 Gastro-esophageal reflux disease without esophagitis; E66.9 Obesity, unspecified; Z68.30 Body mass index [BMI] 30.0-30.9, adult; Z88.0 Allergy status to penicillin; Z88.2 Allergy status to sulfonamides; Z79.899 Other long term (current) drug therapy
CPT/HCPCS: 36415; 71045; 71275; 80053; 80307; 81001; 83690; 83735; 84484; 84703; 85025; 85027; 85379; 85610; A9270; C9113; J2560; J3475; J3490; J7030; J7120; Q9967; 96361; 96365; 96367; 96375; 99285-25; G0378

== ENCOUNTER 2023-07-16 13:44 | Emergency (ER) | payer BC ==
[2023-07-16] MEDS ORDERED: Sodium Chloride 0.9% 10 ML Syringe FLUSH PRN (13:49)
[2023-07-16] MEDS ORDERED: Sodium Chloride 0.9% 2.5 ML Syringe FLUSH PRN (13:49)
[2023-07-16] MEDS ORDERED: Sodium Chloride 0.9% 1,000 ML IV STA (13:49)
[2023-07-16 14:46] LABS: BASOPHILS PERCENT AUTO 0.4 % (0.0-1.5); HEMATOCRIT 43.8 % (36.0-46.0); HEMOGLOBIN 14.5 g/dL (12.0-16.0); LYMPHOCYTES ABSOLUTE AUTO 1.8 K/uL (0.6-2.4); LYMPHOCYTES PERCENT AUTO 21.4 % (16.0-40.0); MEAN CORPUSCULAR HEMOGLOBIN 29.7 pg (27.0-32.0); MEAN CORPUSCULAR HGB CONC 33.1 g/dL (31.0-37.0); MEAN CORPUSCULAR VOLUME 89.6 fL (80.0-98.0); MONOCYTES ABSOLUTE AUTO 0.4 K/uL (0.0-0.8); MONOCYTES PERCENT AUTO 4.4 % (0.0-15.0); NEUTROPHILS ABSOLUTE AUTO 6.3 K/uL (1.4-5.7); NEUTROPHILS PERCENT AUTO 73.8 % (48.0-80.0); NRBC ABSOLUTE 0 K/uL; PLATELET COUNT,PLT 289 K/uL (150-400); RED BLOOD CELL COUNT 4.89 M/uL (4.30-5.90); WHITE BLOOD CELL COUNT,WBC 8.54 K/uL (4.0-11.0)
[2023-07-16 15:33] LABS: MAGNESIUM 2.1 mg/dL (1.8-2.4)
[2023-07-16 15:35] LABS: A/G RATIO 0.9 (0.9-1.6); ALBUMIN 3.5 g/dL (3.4-5.0); BILIRUBIN TOTAL 0.3 mg/dL (0.2-1.0); CALCIUM 8.5 mg/dL (8.5-10.1); CARBON DIOXIDE,CO2 26.8 mmol/L (21.0-32.0); CREATININE 0.8 mg/dL (0.6-1.0); EST CRCL DRUG DOSING (CG) 87.51 mL/min; POTASSIUM,K 3.9 mmol/L (3.5-5.1); PROTEIN TOTAL,TP 7.2 g/dL (6.4-8.2)
[2023-07-16] MEDS ORDERED: Sodium Chloride 0.9% 1,000 ML IV ONE (16:38)
[2023-07-16] MEDS ORDERED: Ondansetron 4 MG Tab.DIS PO STA (18:27)
[2023-07-16 20:30] VITALS: BP 132/99; PULSE 92
== END 2023-07-16 20:31 | disposition home or self-care (01) ==
LOC: MW.ED 13:44
DX: F10.929 Alcohol use, unspecified with intoxication, unspecified (principal); K21.9 Gastro-esophageal reflux disease without esophagitis; E66.9 Obesity, unspecified; Z68.42 Body mass index [BMI] 45.0-49.9, adult; Z88.0 Allergy status to penicillin; Z88.2 Allergy status to sulfonamides
CPT/HCPCS: 36415; 80053; 80307; 83690; 83735; 85025; 99284; A9270; J3490; J7030; 99283